=== PATIENT | female | born 1950 | race American Indian/Alaskan Native ===

== ENCOUNTER 2017-07-30 08:47 | Emergency (ER) | payer MEDICARE, OTHER ==
[~2017-07-30] VITALS: Ht 162.6 cm; Wt 80.7 kg
[~2017-07-30 08:47] MED LIST: ALBUTEROL SULF8.5 GM INH; DULERA 200 MCG/13 GM INH; FLECTOR1 EACH TOP; IBUPROFEN800 MG PO; KLOR-CON M2020 MEQ PO; LISINOPRIL10 MG PO; LOMOTIL TABLET1 EACH PO; LOPERAMIDE2 MG PO; LORATADINE10 MG PO; MAALOX ADVANCE770 ML PO; MULTI VITAMIN1 EACH PO; MYVITALIFE1 EACH PO; NAPROXEN250 MG PO; NORCO 10-325 T1 EACH PO; OMEPRAZOLE20 MG PO; ONDANSETRON ODT4 MG PO; ONDANSETRON ODT8 MG PO; PEPCID20 MG PO; PHENERGAN25 MG RC; POTASSIUM CHLO20 ME1 PO; PRILOSEC40 MG PO; PROAIR HFA8.5 GM INH; PROVENTIL HFA6.7 GM INH; SPIRIVA18 MCG INH; VITAMIN D35000 UNIT PO; ZOFRAN ODT4 MG PO; ZOFRAN ODT8 MG PO; ZOFRAN4 MG; ZOFRAN4 MG PO; ZOFRAN8 MG PO
[2017-07-30] MEDS ORDERED: LORAZEPAM1 MG PO (08:58)
[2017-07-30] MEDS ORDERED: PROMETHAZINE HC25 M1 PO (08:59)
--- NOTE | 2017-07-30 15:53 | EKG ---
[facility] [address] [facility] [place] [address] Signed Sinus rhythm with occasional premature ventricular complexes Otherwise normal ECG No previous ECGs available Confirmed by BLANCA LIZ MD ([id number]) on 07/30/2017 3:53:40 PM Electronically Signed By: BLANCA LIZ MD 07/30/17 1553 PATIENT NAME: MARGARITA MILLER REBA Electrocardiogram DATE OF : 50 PHYSICIAN: BLANCA LIZ MD REPORT #: [id number] REPORT IS CONFIDENTIAL AND NOT TO BE RELEASED WITHOUT AUTHORIZATION
== END 2017-07-30 10:30 | disposition home or self-care (01) ==
LOC: ED 08:47
DX: M94.0 Chondrocostal junction syndrome [Tietze] (principal); K21.9 Gastro-esophageal reflux disease without esophagitis; I10 Essential (primary) hypertension; Z88.5 Allergy status to narcotic agent; Z79.899 Other long term (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
CPT/HCPCS: 71010; 80053; 84484; 85025; 85379; 93005; 93010; 99284; G0480

== ENCOUNTER 2017-10-04 02:53 | Emergency (ER) | payer MEDICARE, OTHER ==
[~2017-10-04] VITALS: Ht 162.6 cm; Wt 82.1 kg
[~2017-10-04 02:53] MED LIST changes: +LORAZEPAM1 MG PO; +PROMETHAZINE HC25 M1 PO
--- OUTSIDE RECORDS SUMMARY | 2017-10-04 04:54 | XMS | Clinical Summary ---
Demographics + + + | Address | [address] | | | [place] [address] | + + + | Home Phone | | + + + | Preferred Language | Unknown | + + + | Marital Status | Single | + + + | Synagogue Affiliation | RONALDO CATHOL | + + + | Race | or | + + + | Ethnic Group | Not or | + + + Author + + + | Author | [facility] | + + + | Organization | [facility] | + + + | Address | Unknown | + + + | Phone | Unavailable | + + + Support + + +---------+ + | Name | Relationship | Address | Phone | + + +---------+ + | GERI BERNARDO | ECON | Unknown | | + + +---------+ + Care Team Providers + +------+ + | Care Vocational Director Name | Role | Phone | + +------+ + | None Per Patient, None Per | PP | Unavailable | | Pt | | | + +------+ + Allergies + + + + + + | Active Allergy | Reactions | Severity | Noted | Comments | | | | | Date | | + + + + + + | Codeine | | | 01/09/20 | | | | | | 11 | | + + + + + + Current Medications + + +-------+---------+------+------+-------+ | Prescription | Sig. | Disp. | Refills | Star | End | Statu | | | | | | t | Date | s | | | | | | Date | | | + + +-------+---------+------+------+-------+ | omeprazole | Take 20 mg by mouth | | | | | Activ | | (PRILOSEC) 20 mg | Daily. | | | | | e | | capsule | | | | | | | + + +-------+---------+------+------+-------+ | FLUTICASONE | Apply in the nose. | | | | | Activ | | PROPIONATE (FLONASE | | | | | | e | | NASL) | | | | | | | + + +-------+---------+------+------+-------+ | VIT | Take by mouth. | | | | | Activ | | 15/IRON CB/FA/DSS | | | | | | e | | ( AD ORAL) | | | | | | | + + +-------+---------+------+------+-------+ | ERGOCALCIFEROL, | Take by mouth. | | | | | Activ | | VITAMIN D2, (VITAMIN | | | | | | e | | D ORAL) | | | | | | | + + +-------+---------+------+------+-------+ | PSYLLIUM SEED | Take by mouth. | | | | | Activ | | (FIBER LAXATIVE, | | | | | | e | | PSYLLIUM, S/F ORAL) | | | | | | | + + +-------+---------+------+------+-------+ Active Problems Not on file Social History + +-------+ +--------+------+ | Tobacco Use | Types | Packs/Day | Years | Date | | | | | Used | | + +-------+ +--------+------+ | Never Assessed | | | | | + +-------+ +--------+------+ + + + | Sex Assigned at | Date Recorded | | | | + + + | Not on file | | + + + Last Filed Vital Signs + + + + | Vital Sign | Reading | Time Taken | + + + + | Blood Pressure | 129/66 | 01/08/2011 4:57 PM PDT | + + + + | Pulse | 60 | 01/08/2011 4:57 PM PDT | + + + + | Temperature | 36.8 C (98.2 F) | 01/08/2011 2:23 PM PDT | + + + + | Respiratory Rate | 18 | 01/08/2011 4:57 PM PDT | + + + + | Oxygen Saturation | 98% | 01/08/2011 4:57 PM PDT | + + + + | Inhaled Oxygen | - | - | | Concentration | | | + + + + | Weight | - | - | + + + + | Height | - | - | + + + + | Body Mass Index | - | - | + + + + Plan of Treatment + + + + + | Health Maintenance | Due Date | Last Done | Comments | + + + + + | Hep C Ab Screening | | | | | | 0 | | | + + + + + | Tetanus | | | | | | 9 | | | + + + + + | Breast Cancer | | | | | Screening | 0 | | | + + + + + | Colon Cancer | | | | | Screening | 0 | | | + + + + + | Zoster Vaccine | | | | | | 0 | | | + + + + + | Dexascan | | | | | | 5 | | | + + + + + | Pneumo 65+ (1 of 2 - | | | | | PCV13) | 5 | | | + + + + + | IMM Influenza (#1) | | | | | | 7 | | | + + + + + Results Not on filefrom Last 3 Months Insurance + +--------+ +--------+ + + | Payer | Benefi | Subscriber | Type | Phone | Address | | | t Plan | ID | | | | | | / | | | | | | | Group | | | | | + +--------+ +--------+ + + | [place] | MEDICA | [id number] | Medica | [phone] [address] [address] | | | [place] | | id | [phone] | [place] [address] | | | CARES | | | | | + +--------+ +--------+ + + + +--------+ +--------+ + + | Guarantor Name | Accoun | Relation to | Date | Phone | Billing Address | | | t Type | Patient | of | | | | | | | | | | + +--------+ +--------+ + + | MARGARITA AGOSTO | Person | Self [birth year] | Home: | [address] | | | al/Fam | | 1950 | [phone] | [place] [address] | | | steve | | | [phone] | | + +--------+ +--------+ + + Advance Directives Patient has advance directives. For more information, please contact:[email or web address] [facility] [place] [address]"
--- OUTSIDE RECORDS SUMMARY | 2017-10-04 04:54 | XMS | Clinical Summary ---
Demographics + + + | Address | [address] | | | [place] [address] | + + + | Home Phone | | + + + | Preferred Language | Unknown | + + + | Marital Status | Single | + + + | Jew Affiliation | RONALDO CATHOL | + + [...] Team Providers + +------+ + | Care Subeditor Name | Role | Phone | + [...] + | [place] | MEDICA | [id number] | Medica | [phone] | [address] [address] | | | [place] | | id | [phone] | [place] [address] | | | CARES | | | [...] | 1950 | [phone] | [place] [address] | | | steve | | | [phone] | | + +--------+ +--------+ + + Advance Directives Patient has advance directives. For more information, please contact:[employer] [place] [address]"
== END 2017-10-04 05:20 | disposition home or self-care (01) ==
LOC: ED 02:53
DX: K52.9 Noninfective gastroenteritis and colitis, unspecified (principal); K21.9 Gastro-esophageal reflux disease without esophagitis; I10 Essential (primary) hypertension; Z88.5 Allergy status to narcotic agent; Z79.899 Other long term (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
CPT/HCPCS: 80053; 81001; 83690; 85025; 96374; 96375; 99283; J2405; J7030

== ENCOUNTER 2017-11-06 09:02 | Emergency (ER) | payer MEDICARE, OTHER ==
[~2017-11-06] VITALS: Ht 162.6 cm; Wt 82.1 kg
--- OUTSIDE RECORDS SUMMARY | 2017-11-06 11:30 | XMS | Clinical Summary ---
Demographics + + + | Address | [address] | | | [place] [address] | + + + | Home Phone | | + + + | Preferred Language | Unknown | + + + | Marital Status | Single | + + + | Islam Affiliation | 1041 | + + + | Race | Unknown | + + + | Ethnic Group | Unknown | + + + Author + + + | Author | [facility] | | | and Aurelianoana | + + + | Organization | [facility] | | | and Aurelianoana | + + + | Address | Unknown | + + + | Phone | Unavailable | + + + Support + + +---------+ + | Name | Relationship | Address | Phone | + + +---------+ + | Diego Cunha | ECON | Unknown | | + + +---------+ + Care Team Providers + +------+ + | Care Business Functional Analyst Name | Role | Phone | + +------+ + | Israel Farooq DO | PP | | + +------+ + Allergies + + + + + + | Active Allergy | Reactions | Severity | Noted | Comments | | | | | Date | | + + + + + + | Codeine | Nausea Only | | 05/28/20 | | | | | | 14 | | + + + + + + Current Medications + + +-------+---------+------+------+-------+ | Prescription | Sig. | Disp. | Refills | Star | End | Statu | | | | | | t | Date | s | | | | | | Date | | | + + +-------+---------+------+------+-------+ | omeprazole | Take 40 mg by mouth | | | | | Activ | | (PRILOSEC) 40 MG | every morning | | | | | e | | capsule | (before breakfast). | | | | | | + + +-------+---------+------+------+-------+ | lisinopril | Take 10 mg by mouth | | | | | Activ | | (PRINIVIL, ZESTRIL) | Daily. | | | | | e | | 10 mg tablet | | | | | | | + + +-------+---------+------+------+-------+ | cyclobenzaprine | Take 10 mg by mouth | | | | | Activ | | (FLEXERIL) 10 mg | 3 times daily as | | | | | e | | tablet | needed. | | | | | | + + +-------+---------+------+------+-------+ | famotidine | Take 20 mg by mouth | | | | | Activ | | (PEPCID) 20 mg | 2 times daily. | | | | | e | | tablet | | | | | | | + + +-------+---------+------+------+-------+ | nitrofurantoin | Take 100 mg by mouth | | | | | Activ | | (MACROBID) 100 mg | 2 times daily. | | | | | e | | capsule | | | | | | | + + +-------+---------+------+------+-------+ | potassium citrate | Take 10 mEq by mouth | | | | | Activ | | (UROCIT-K) 10 mEq SR | 3 times daily (with | | | | | e | | tablet | meals). | | | | | | + + +-------+---------+------+------+-------+ | Multiple Vitamin | Take by mouth. | | | | | Activ | | (MULTI VITAMIN DAILY | | | | | | e | | PO) | | | | | | | + + +-------+---------+------+------+-------+ | phenazopyridine | Take 100 mg by mouth | | | | | Activ | | (PYRIDIUM) 100 mg | 3 times daily as | | | | | e | | tablet | needed. | | | | | | + + +-------+---------+------+------+-------+ | folic acid 1 mg | Take 1 mg by mouth | | | | | Activ | | tablet | Daily. | | | | | e | + + +-------+---------+------+------+-------+ | | Inhale 2 puffs into | | | | | Activ | | mometasone-formotero | the lungs Twice | | | | | e | | l (DULERA) 100-5 | Daily. | | | | | | | mcg/puff inhaler | | | | | | | + + +-------+---------+------+------+-------+ | ibuprofen (ADVIL, | Take 200 mg by mouth | | | | | Activ | | MOTRIN) 200 mg | every 6 hours as | | | | | e | | tablet | needed for Pain. | | | | | | + + +-------+---------+------+------+-------+ Active Problems + + + | Problem | Noted Date | + + + | Lumbar radiculopathy primarily right lower extremity | 06/04/2014 | + + + | DDD (degenerative disc disease), lumbar- severe at multiple | 06/04/2014 | | levels | | + + + | Foraminal stenosis of lumbar region | 06/04/2014 | + + + | Spinal stenosis of lumbar region-moderate worst at L3-L4 | 06/04/2014 | + + + | Trochanteric bursitis of both hips | 06/04/2014 | + + + | Hip arthritis-mild on the right | 06/04/2014 | + + + Family History + + +------+ + | Medical History | Relation | Name | Comments | + + +------+ + | Diabetes | Father | | | + + +------+ + | Alcohol abuse | Mother | | and father | + + +------+ + | Heart defect | Mother | | | + + +------+ + + +------+ + + | Relation | Name | Status | Comments | + +------+ + + | Brother | | Alive | | + +------+ + + | Brother | | | | + +------+ + + | Father | | | | + +------+ + + | Mother | | | | | | | (Age | | | | | 88) | | + +------+ + + | Sister | | | | | | | (Age | | | | | 65) | | + +------+ + + | Son | | | | + +------+ + + | Son | | | | + +------+ + + | Son | | Alive | | + +------+ + + Social History + +-------+ +--------+------+ | Tobacco Use | Types | Packs/Day | Years | Date | | | | | Used | | + +-------+ +--------+------+ | Never Smoker | | | | | + +-------+ +--------+------+ + + +---------+ + | Alcohol Use | Drinks/We | oz/Week | Comments | | | ek | | | + + +---------+ + | Yes | | | Socially | + + +---------+ + + + + | Sex Assigned at | Date Recorded | | | | + + + | Not on file | | + + + Last Filed Vital Signs + + + + | Vital Sign | Reading | Time Taken | + + + + | Blood Pressure | 141/82 | 11/25/2014 1509 PDT | + + + + | Pulse | 94 | 11/25/2014 1509 PDT | + + + + | Temperature | - | - | + + + + | Respiratory Rate | - | - | + + + + | Oxygen Saturation | - | - | + + + + | Inhaled Oxygen | - | - | | Concentration | | | + + + + | Weight | 83.9 kg (185 lb) | 10/22/20141151 PDT | + + + + | Height | 162.6 cm (5' 4") | 10/22/20141151 PDT | + + + + | Body Mass Index | 31.76 | 10/22/20141151 PDT | + + + + Plan of Treatment + + + + + | Health Maintenance | Due Date | Last Done | Comments | + + + + + | Hepatitis C | | | | | Screening | 0 | | | + + + + + | Vaccine: | | | | | Dtap/Tdap/Td (1 - | 9 | | | | Tdap) | | | | + + + + + | BREAST CANCER | | | | | SCREENING (MAMM Q2 | 0 | | | | YEARS 50-74) | | | | + + + + + | COLON CANCER | | | | | SCREENING | 0 | | | | (COLONOSCOPY EVERY | | | | | 10 YEARS 50-75) | | | | + + + + + | Vaccine: Zoster (#1) | | | | | | 0 | | | + + + + + | Vaccine: | | | | | Pneumococcal 65+ | 5 | | | | Low/Medium Risk (1 | | | | | of 2 - PCV13) | | | | + + + + + | Vaccine: Influenza | | | | | (Season Ended) | 8 | | | + + + + + Results Not on filefrom Last 3 Months Insurance + +--------+ +--------+ +---------+ | Payer | Benefi | Subscriber | Type | Phone | Address | | | t Plan | ID | | | | | | / | | | | | | | Group | | | | | + +--------+ +--------+ +---------+ | [employer] | FAMILY | xxxxxxxxxx | Medica | [phone] | | | MEDICARE | CARE | | re | [phone] | | | | PRMCR | | | | | | | MDCR | | | | | | | HMO | | | | | + +--------+ +--------+ +---------+ | [place]ID [place] | MEDICA | xxxxxxxx | Medica | [phone] | | | ID | | id | [phone] | | | | [place] | | | | | + +--------+ +--------+ +---------+ | [employer] | IHS | xxxxxxxxx | Indemn | | | | SERVICE | YELLOW | | ity | | | | | [place] | | | | | + +--------+ +--------+ +---------+ + +--------+ +--------+ + + | Guarantor Name | Accoun | Relation to | Date | Phone | Billing Address | | | t Type | Patient | of | | | | | | | | | | + +--------+ +--------+ + + | MARGARITA MILLER | Person | Self [birth year] | Home: | [address] | | | al/Fam | | 1950 | [phone] | [place] [address] | | | steve | | | [address] | | + +--------+ +--------+ + +
--- OUTSIDE RECORDS SUMMARY | 2017-11-06 11:30 | XMS | Clinical Summary ---
Demographics + + + | Address | [address] | | | [place] [address] | + + + | Home Phone | | + + + | Preferred Language | Unknown | + + + | Marital Status | Single | + + + | Anglican Affiliation | 1041 | + + + | Race | Unknown | + + + | Ethnic Group | Unknown | + + + Author + + + | Author | [facility] | | | and Aurelianoana | + + + | Organization | [facility] | | | and Aurelianoana [...] Team Providers + +------+ + | Care Riveter Automobile Brakes Name | Role | Phone | + [...] | FAMILY | [phone] | Medica | [phone] | | | MEDICARE | CARE | [...] | | + +--------+ +--------+ +---------+ | [facility] | IHS | xxxxxxxxx | Indemn [...] Self | [birth year] | Home: | [address] | | | al/Fam | | 1950 | [phone] | [place] [address] | | | steve | | | [address] | | + +--------+ +--------+ + +
[2017-11-06] MEDS ORDERED: ZOFRAN4 MG PO (12:06)
== END 2017-11-06 12:17 | disposition home or self-care (01) ==
LOC: ED 09:02
DX: S20.212A Contusion of left front wall of thorax, initial encounter (principal); R11.2 Nausea with vomiting, unspecified; R19.7 Diarrhea, unspecified; I10 Essential (primary) hypertension; K21.9 Gastro-esophageal reflux disease without esophagitis; Z88.5 Allergy status to narcotic agent; Z79.899 Other long term (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; W19.XXXA Unspecified fall, initial encounter
CPT/HCPCS: 71101; 80053; 81001; 83690; 85025; 96374; 96375; 99283; J2405; J7030; J7040

== ENCOUNTER 2018-08-08 23:32 | Emergency (ER) | payer MEDICARE, OTHER ==
[~2018-08-08] VITALS: Ht 162.6 cm; Wt 82.1 kg
--- OUTSIDE RECORDS SUMMARY | 2018-08-08 23:38 | XMS ---
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 EWan VISIT COUNT (12 MO.) 3 C[facility]Y Dem[facility]co TOTAL 3 NOTE: Visits indicate total known visits. 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 - Essential (primary) hypertension - Nausea with vomiting, unspecified - Diarrhea, unspecified - Contusion of left front wall of thorax, initial encounter - Gastro-esophageal reflux disease without esophagitis 10/04/2017 02:54 [facility] [place] TYPE: Emergency COMPLAINT: - ABD PAIN DIAGNOSES: - 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
== END 2018-08-09 02:25 | disposition home or self-care (01) ==
LOC: ED 23:32
DX: K59.00 Constipation, unspecified (principal); K21.9 Gastro-esophageal reflux disease without esophagitis; I10 Essential (primary) hypertension; Z88.5 Allergy status to narcotic agent; Z79.899 Other long term (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
CPT/HCPCS: 99283

== ENCOUNTER 2018-11-04 07:32 | Emergency (ER) | payer MEDICARE, OTHER ==
[~2018-11-04] VITALS: Ht 162.6 cm; Wt 82.1 kg
--- OUTSIDE RECORDS SUMMARY | ~2018-11-04 | XMS | Clinical Summary ---
Demographics + + + | Address | [address] | | | [place] [address] | + + + | Home Phone | | + + + | Preferred Language | Unknown | + + + | Marital Status | Single | + + + | Yazdanism Affiliation | 1041 | + + + | Race | Unknown | + + + | Ethnic Group | Unknown | + + + Author + + + | Author | [facility] | | | and Aurelianoana | + + + | Organization | [facility] | | | and Aurelianoana [...] Team Providers + +------+ + | Care Posting Machine Operator Name | Role | Phone [...] | | | | (Season Ended) | 9 | | | + + [...] +---------+ | [place]ICAID [place] | MEDICA | [id number] | Medica | [phone] | | | | ID | | id | [id number] | | | | [place] | | | | | + +--------+ +--------+ +---------+ | HEALTH | IHS | [id number] | Indemn | | | | SERVICE [...] Self | [birth year] | Home: | [address] | | | al/Fam | | 1950 | [phone] | [place] [address] | | | steve | | | [address] | | + +--------+ +--------+ + +
--- OUTSIDE RECORDS SUMMARY | ~2018-11-04 | XMS | Clinical Summary ---
Demographics + + + | Address | [address] | | | [place] [address] | + + + | Home Phone | | + + + | Preferred Language | Unknown | + + + | Marital Status | Single | + + + | Hinduism Affiliation | 1041 | + + + | Race | Unknown | + + + | Ethnic Group | Unknown | + + + Author + + + | Author | [facility] | | | and Aurelianoana | + + + | Organization | [facility] | | | and [...] Team Providers + +------+ + | Care Lens Assorter Name | Role | Phone | + [...] +---------+ | [place]ID [place] | MEDICA | [id number] | Medica | [phone] | | | | ID | | id | [phone] | | | | [place] | | | | | + +--------+ +--------+ +---------+ | HEALTH | IHS | [id number] | Indemn | | | | SERVICE [...] Self | [birth year] | Home: | [address] | | | al/Fam | | 1950 | [phone] | [place] [address] | | | steve | | | [address] | | + +--------+ +--------+ + +
--- OUTSIDE RECORDS SUMMARY | 2018-11-04 07:34 | XMS ---
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 Care History Medical/Surgical 08/09/2018 [facility] \T\middot;\T\nbsp; PATIENT IS A [employer] MEMBER. \T\middot;\T\nbsp; PLEASE REFER PATIENT TO [facility] FOR NON EMERGENT MEDICAL NEEDS. \T\middot;\ T\nbsp; [facility] CAN SEE PATIENTS SAME DAY FOR APTS IF PATIENT CALLS FIRST THING IN THE MORNING. Lisette VISIT COUNT (12 MO.) 3 CASSIDY Demarco TOTAL 3 NOTE: Visits indicate total known visits. 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 - Essential (primary) hypertension - Allergy status to narcotic agent status 11/06/2017 09:03 [facility] [place] TYPE: Emergency COMPLAINT: - VOMITING/DIARRHEA DIAGNOSES: - Unspecified fall, initial encounter - Allergy status to narcotic agent status - Other fpc (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 - Essential (primary) hypertension - Nausea with vomiting, unspecified - Diarrhea, unspecified - Contusion of left front wall of thorax, initial encounter - Gastro-esophageal reflux disease without esophagitis INPATIENT VISIT TRACKING (12 MO.) No inpatient visits to display in this time frame [id number]
[2018-11-04] MEDS ORDERED: ONDANSETRON ODT8 MG PO (09:13)
== END 2018-11-04 09:20 | disposition home or self-care (01) ==
LOC: ED 07:32
DX: K29.20 Alcoholic gastritis without bleeding (principal); I10 Essential (primary) hypertension; Z88.5 Allergy status to narcotic agent; Z79.899 Other long term (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
CPT/HCPCS: 80053; 83690; 85025; 96361; 96374; 96375; 99284-25; C9113; J2405; J7030

== ENCOUNTER 2019-04-11 20:57 | Emergency (ER) | payer MEDICARE, OTHER ==
[~2019-04-11] VITALS: Ht 162.6 cm; Wt 82.1 kg
--- OUTSIDE RECORDS SUMMARY | 2019-04-11 21:00 | XMS ---
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 Care History Medical/Surgical 08/09/2018 [facility] \T\middot;\T\nbsp; PATIENT IS A [employer] MEMBER. \T\middot;\T\nbsp; PLEASE REFER PATIENT TO [facility] FOR NON EMERGENT MEDICAL NEEDS. \T\middot;\ T\nbsp; [facility] CAN SEE PATIENTS SAME DAY FOR APTS IF PATIENT CALLS FIRST THING IN THE MORNING. Lisette VISIT COUNT (12 MO.) 4 CASSIDY Demarco TOTAL 4 NOTE: Visits indicate total known visits. 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
== END 2019-04-11 22:30 | disposition home or self-care (01) ==
LOC: ED 20:57
DX: K29.20 Alcoholic gastritis without bleeding (principal); K85.20 Alcohol induced acute pancreatitis without necrosis or infection; I10 Essential (primary) hypertension; J45.909 Unspecified asthma, uncomplicated; K21.9 Gastro-esophageal reflux disease without esophagitis; Z88.5 Allergy status to narcotic agent; Z79.899 Other long term (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
CPT/HCPCS: 51701; 80053; 81001; 83690; 83735; 85025; 99284-25; G0480; J2405; J7030

== ENCOUNTER 2019-04-12 00:23 | Emergency (ER) | payer MEDICARE, OTHER ==
[~2019-04-12] VITALS: Ht 162.6 cm; Wt 82.1 kg
--- OUTSIDE RECORDS SUMMARY | 2019-04-12 00:26 | XMS ---
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 Care History Medical/Surgical 08/09/2018 [facility] \T\middot;\T\nbsp; PATIENT IS A [employer] MEMBER. \T\middot;\T\nbsp; PLEASE REFER PATIENT TO [facility] FOR NON EMERGENT MEDICAL NEEDS. \T\middot;\ T\nbsp; [facility] CAN SEE PATIENTS SAME DAY FOR APTS IF PATIENT CALLS FIRST THING IN THE MORNING. E.D. VISIT COUNT (12 MO.) 5 CASSIDY Demarco TOTAL 5 NOTE: Visits indicate total known visits. ED/UCC VISIT TRACKING (12 MO.) 04/12/2019 00:24 [facility] TYPE: Emergency COMPLAINT: - CHEST PAIN, VOMITING 04/11/2019 20:58 [facility] TYPE: Emergency COMPLAINT: - N/V/D 03/10/2019 18:25 [facility] TYPE: Emergency COMPLAINT: - LOWER BACK PAIN DIAGNOSES: - Other long winder tender (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 - Allergy status to narcotic agent status - Essential (primary) hypertension - Gastro-esophageal reflux disease without esophagitis - Low back pain 11/04/2018 07:33 [facility] TYPE: Emergency COMPLAINT: - ABD PAIN/VOMITING DIAGNOSES: - Nausea with vomiting, unspecified - Other long winder tender (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 - Alcoholic gastritis without bleeding - Essential (primary) hypertension - Allergy status to narcotic agent status 08/08/2018 23:34 [facility] TYPE: Emergency COMPLAINT: - CONSTIPATION DIAGNOSES: - Gastro-esophageal reflux disease without esophagitis - Constipation, unspecified - Other mcc (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 - Essential (primary) hypertension - Allergy status to narcotic agent status INPATIENT VISIT TRACKING (12 MO.) No inpatient visits to display in this time frame [id number]
--- NOTE | 2019-04-12 13:08 | EKG ---
[facility] [address] [facility] [place] [address] Signed Normal sinus rhythm Low voltage QRS Borderline ECG When compared with ECG of 30-JUL-2017 08:51, premature ventricular complexes are no longer present Confirmed by BLANCA LIZ MD ([id number]) on 04/12/2019 1:08:32 PM Electronically Signed By: BLANCA LIZ MD 04/12/19 1308 PATIENT NAME: MARGARITA MILLER REBA Electrocardiogram DATE OF : 50 PHYSICIAN: BLANCA LIZ MD REPORT #: [id number] REPORT IS CONFIDENTIAL AND NOT TO BE RELEASED WITHOUT AUTHORIZATION
== END 2019-04-12 02:52 | disposition home or self-care (01) ==
LOC: ED 00:23
DX: K52.9 Noninfective gastroenteritis and colitis, unspecified (principal); I10 Essential (primary) hypertension; Z88.5 Allergy status to narcotic agent; Z79.899 Other long term (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
CPT/HCPCS: 74177; 93005; 93010; 96361; 99284-25; C9113; J2550; J7030; Q9967

== ENCOUNTER 2019-08-05 11:25 | Emergency (ER) | payer MEDICARE, OTHER ==
[~2019-08-05] VITALS: Ht 162.6 cm; Wt 82.1 kg
--- OUTSIDE RECORDS SUMMARY | ~2019-08-05 | XMS | Encounter Summary ---
Demographics + + + | Address | [address] | | | [place] [address] | + + + | Home Phone | | + + + | Preferred Language | Unknown | + + + | Marital Status | Single | + + + | Latter Day Affiliation | 1041 | + + + | Race | Unknown | + + + | Ethnic Group | Unknown | + + + Author + + + | Author | [facility] | | | and Aurelianoana | + + + | Organization | [facility] | | | and Aurelianoana | [...] Team Providers + +------+ + | Care Furnace Installer Helper Name | Role | Phone | + +------+ + | Shirley Alvarez | PCP | | + +------+ + Encounter Details +--------+ + + + + | Date | Type | Department | Care Team | Description | +--------+ + + + + | 06/29/ | Orders Only | [facility] | Augustin Medina MD | Back pain; | | 2011 | | NEUROSURGERY [address] | [address] | Hip pain, left | | | | [address] | [place] [address] | | | | | [place] | [phone] | | | | | [address] | | | | | | [phone] | | | +--------+ + + + [...] as of this encounter Plan of Treatment + +---------+--------+ + + | Name | Type | Priori | Associated Diagnoses | Order Schedule | | | | ty | | | + +---------+--------+ + + | XR Lumbar Spine 4 + | Imaging | Routin | Back pain Hip | Expected: | | Vw | | e | pain, left | 06/29/2012, Expires: | | | | | | 06/29/2013 | + +---------+--------+ + + documented as of this encounter Visit Diagnoses + + | Diagnosis | + + | Back pain Backache, unspecified | + + | Hip pain, left Pain in joint, pelvic region and thigh | + + documented in this encounter"
--- OUTSIDE RECORDS SUMMARY | ~2019-08-05 | XMS | Encounter Summary ---
Demographics + + + | Address | [address] | | | [place] [address] | + + + | Home Phone | | + + + | Preferred Language | Unknown | + + + | Marital Status | Single | + + + | Restorationism Affiliation | 1041 | + + + | Race | Unknown | + + + | Ethnic Group | Unknown | + + + Author + + + | Author | [facility] | | | and Aurelianoana | + + + | Organization | [facility] | | | and [...] Team Providers + +------+ + | Care Type Inspector Name | Role | Phone | + +------+ + | Israel Farooq DO | PCP | | + +------+ + Reason for Visit Service/Procedure (Routine) +--------+--------+ + + + + | Status | Reason | Specialty | Diagnoses / | Referred By | Referred To | | | | | Procedures | Contact | Contact | +--------+--------+ + + + + | Closed | | Radiology | Diagnoses | | [facility] | | | | | Thoracic or | [place], | [address] | | | | | lumbosacral | Randy Villar MD | [place], | | | | | neuritis or | [address] | [place] | | | | | | ST [place] | [address] | | | | | radiculitis, | [place], [place] | Phone: | | | | | unspecified | [address] | [phone] | | | | | | Phone: | Fax: | | | | | Trochanteric | [phone] | [phone] | | | | | bursitis of | Fax: | | | | | | right hip | [phone] | | | | | | Procedures | | | | | | | [place] | | | | | | | ARTHROCENTES | | | | | | | IS | | | | | | | ASPIR&/INJ | | | | | | | MAJOR | | | | | | | JT/BURSA W/O | | | | | | | US [place] | | | | | | | INJECT | | | | | | | ANES/STEROID | | | | | | | FORAMEN | | | | | | | LUMBAR/SACRA | | | | | | | L W IMG | | | | | | | GUIDE ,1 | | | | | | | LEVEL FL | | | | | | | TRIAMCINOLON | | | | | | | E ACET INJ | | | | | | | NOS, 10 MG | | | | | | | Right S1 | | | | | | | TFESI and Rt | | | | | | | Troch | | | | | | | Bursa-APPT | | | | | | | 4/7 | | | +--------+--------+ + + + + Encounter Details +--------+ + + + + | Date | Type | Department | Care Team | Description | +--------+ + + + + | 11/25/ | Hospital | [facility] | [place] ajosé antonioleightonRandy | Lumbar radiculopathy | | 2015 | Encounter | MED CTR XRAY [address] | [address], [address] | (Primary Dx); Right | | | | [address] [place] | [place], [place] | lumbar | | | | [place] [address] | [address] | radiculopathy; | | | | [phone] | | Trochanteric | | | | | Hand Violin Maker, [place] | bursitis of both | | | | | | hips | +--------+ + + + + Social [...] + + documented as of this encounter Last Filed Vital Signs + +---------+ + + | Vital Sign | Reading | Time Taken | Comments | + +---------+ + + | Blood Pressure | 141/82 | 11/25/2014 3:09 PM | | | | | PDT | | + +---------+ + + | Pulse | 94 | 11/25/2014 3:09 PM | | | | | PDT | | + +---------+ + + | Temperature | - | - | | + +---------+ + + | Respiratory Rate | - | - | | + +---------+ + + | Oxygen Saturation | - | - | | + +---------+ + + | Inhaled Oxygen | - | - | | | Concentration | | | | + +---------+ + + | Weight | - | - | | + +---------+ + + | Height | - | - | | + +---------+ + + | Body Mass Index | - | - | | + +---------+ + + documented in this encounter Medications at Time of Discharge + + + +---------+--------+ + | Medication | Sig | Dispensed | Refills | Start | End Date | | | | | | Date | | + + + +---------+--------+ + | cyclobenzaprine | Take 10 mg by mouth | | 0 | | | | (FLEXERIL) 10 mg | 3 times daily as | | | | | | tablet | needed. | | | | | + + + +---------+--------+ + | famotidine | Take 20 mg by mouth | | 0 | | | | (PEPCID) 20 mg | 2 times daily. | | | | | | tablet | | | | | | + + + +---------+--------+ + | folic acid 1 mg | Take 1 mg by mouth | | 0 | | | | tablet | Daily. | | | | | + + + +---------+--------+ + | ibuprofen (ADVIL, | Take 200 mg by mouth | | 0 | | | | MOTRIN) 200 mg | every 6 hours as | | | | | | tablet | needed for Pain. | | | | | + + + +---------+--------+ + | lisinopril | Take 10 mg by mouth | | 0 | | | | (PRINIVIL, ZESTRIL) | Daily. | | | | | | 10 mg tablet | | | | | | + + + +---------+--------+ + | | Inhale 2 puffs into | | 0 | | | | mometasone-formotero | the lungs Twice | | | | | | l (DULERA) 100-5 | Daily. | | | | | | mcg/puff inhaler | | | | | | + + + +---------+--------+ + | Multiple Vitamin | Take by mouth. | | 0 | | | | (MULTI VITAMIN DAILY | | | | | | | PO) | | | | | | + + + +---------+--------+ + | nitrofurantoin | Take 100 mg by mouth | | 0 | | | | (MACROBID) 100 mg | 2 times daily. | | | | | | capsule | | | | | | + + + +---------+--------+ + | omeprazole | Take 40 mg by mouth | | 0 | | | | (PRILOSEC) 40 MG | every morning | | | | | | capsule | (before breakfast). | | | | | + + + +---------+--------+ + | phenazopyridine | Take 100 mg by mouth | | 0 | | | | (PYRIDIUM) 100 mg | 3 times daily as | | | | | | tablet | needed. | | | | | + + + +---------+--------+ + | potassium citrate | Take 10 mEq by mouth | | 0 | | | | (UROCIT-K) 10 mEq SR | 3 times daily (with | | | | | | tablet | meals). | | | | | + + + +---------+--------+ + documented as of this encounter Plan of Treatment Not on filedocumented as of this encounter Procedures + +--------+ + + + | Procedure Name | Priori | Date/Time | Associated Diagnosis | Comments | | | ty | | | | + +--------+ + + + | FL ASPIRATION | Routin | 11/25/2014 | Trochanteric | Results for this | | INJECTION | e | 2:52 PM | bursitis of both | procedure are in the | | INTERMEDIATE JOINT | | PDT | hips | results section. | | RIGHT | | | | | + +--------+ + + + | FL EPIDURAL STEROID | Routin | 11/25/2014 | Right lumbar | Results for this | | INJECTION LUMBAR | e | 2:52 PM | radiculopathy | procedure are in the | | TRANSFORAMINAL | | PDT | | results section. | + +--------+ + + + documented in this encounter Results FL Asp Inj Intermediate Joint Right (11/25/2014 2:52 PM PDT) + + | Specimen | + + | | + + + + + | Narrative | Performed At | + + + | 11/25/2014 Right S1 Transforaminal Epidural Steroid Injection and | [facility] | | Right Trochanteric Bursa Injection Diagnosis: Lumbosacral | [facility] | | radiculopathy and Trochanteric Bursitis ICD-9 Codes 724.4, 726.5 | [facility] | | Leyla Agosto presents to the fluoroscopy suite for a | - IMAGING | | fluoroscopically-guided right S1 transforaminal epidural steroid | | | injection as part of conservative management for chronic pain with | | | lumbosacral radiculopathy and degenerative disk disease. After | | | informed consent was obtained, the patient lay in the prone position | | | on the fluoroscopy table. The area was identified under | | | fluoroscopic guidance. The area was prepped and draped in sterile | | | fashion. A 25-gauge, 1.5-inch needle was inserted into this region | | | and approximately 3 mL of buffered 1% lidocaine was infused. | | | Then, a 22-gauge spinal needle was inserted into the superolateral | | | region of the right S1 foramen and advanced into the epidural space | | | under fluoroscopic guidance. Confirmation into the epidural space | | | was obtained with infusion of approximately 1 mL of Omnipaque | | | contrast which showed epidural flow. Then, a combination of 1.5 | | | mL of 1% lidocaine and 1.5 mL of 6 mg/mL Celestone was infused. | | | A right trochanteric bursa injection was also performed with | | | fluoroscopic guidance. The area for the injection was located by | | | palpation and fluoroscopic guidance then marked over the lateral | | | hip. The area was then sterilized with chlorhexidine scrub before | | | inserting a 1-1/2 inch 27-gauge needle into the region to administer | | | approximately 2 mL of buffered 1% lidocaine for local anesthesia. | | | Then a 22 gauge spinal needle was advanced down to the greater | | | trochanter under fluoroscopic guidance. Next, a small amount of | | | contrast was then infused to insure that there was no vascular | | | uptake. A total volume of 5 mL including 1 mL of triamcinolone ( 40 | | | milligrams per mL) and 4 mL of 1% lidocaine was then infused. The | | | needle was removed and the area was cleaned and bandaged. The | | | patient tolerated the procedures well without complications. Pre- | | | and post-procedure blood pressures were stable. The patient was | | | given verbal as well as written follow-up instructions. Prior | | | to the start of the procedure, the following were performed and/or | | | verified, including correct patient identity, correct site/side marked | | | and visible, agreement on the procedure to be done, correct patient | | | positioning and an accurate procedure consent form. Any safety | | | precautions based on clinical history and/or medication use have been | | | addressed. I personally performed the procedure above. | | | Estimated blood loss: Minimal Complications: None Findings: As | | | expected Anesthesia: Local 1% Lidocaine | | + + + + + + + + | Performing | Address | City/State[facility] | Phone Number | | Organization | | | | + + + + + | [facility] | [address] | [place], [place] | [phone] | | [facility] | | [address] | | | - IMAGING | | | | + + + + + FL JOSE ENRIQUE Lumbar Transforaminal (11/25/2014 2:52 PM PDT) + + | Specimen | + + | | + + + + + | Narrative | Performed At | + + + | 11/25/2014 Right S1 Transforaminal Epidural Steroid Injection and | [facility] | | Right Trochanteric Bursa Injection Diagnosis: Lumbosacral | [facility] | | radiculopathy and Trochanteric Bursitis ICD-9 Codes 724.4, 726.5 | MEDICAL [facility]ENTER | | Leyla Agosto presents to the fluoroscopy suite for a | - IMAGING | | fluoroscopically-guided right S1 transforaminal epidural steroid | | | injection as part of conservative management for chronic pain with | | | lumbosacral radiculopathy and degenerative disk disease. After | | | informed consent was obtained, the patient lay in the prone position | | | on the fluoroscopy table. The area was identified under | | | fluoroscopic guidance. The area was prepped and draped in sterile | | | fashion. A 25-gauge, 1.5-inch needle was inserted into this region | | | and approximately 3 mL of buffered 1% lidocaine was infused. | | | Then, a 22-gauge spinal needle was inserted into the superolateral | | | region of the right S1 foramen and advanced into the epidural space | | | under fluoroscopic guidance. Confirmation into the epidural space | | | was obtained with infusion of approximately 1 mL of Omnipaque | | | contrast which showed epidural flow. Then, a combination of 1.5 | | | mL of 1% lidocaine and 1.5 mL of 6 mg/mL Celestone was infused. | | | A right trochanteric bursa injection was also performed with | | | fluoroscopic guidance. The area for the injection was located by | | | palpation and fluoroscopic guidance then marked over the lateral | | | hip. The area was then sterilized with chlorhexidine scrub before | | | inserting a 1-1/2 inch 27-gauge needle into the region to administer | | | approximately 2 mL of buffered 1% lidocaine for local anesthesia. | | | Then a 22 gauge spinal needle was advanced down to the greater | | | trochanter under fluoroscopic guidance. Next, a small amount of | | | contrast was then infused to insure that there was no vascular | | | uptake. A total volume of 5 mL including 1 mL of triamcinolone ( 40 | | | milligrams per mL) and 4 mL of 1% lidocaine was then infused. The | | | needle was removed and the area was cleaned and bandaged. The | | | patient tolerated the procedures well without complications. Pre- | | | and post-procedure blood pressures were stable. The patient was | | | given verbal as well as written follow-up instructions. Prior | | | to the start of the procedure, the following were performed and/or | | | verified, including correct patient identity, correct site/side marked | | | and visible, agreement on the procedure to be done, correct patient | | | positioning and an accurate procedure consent form. Any safety | | | precautions based on clinical history and/or medication use have been | | | addressed. I personally performed the procedure above. | | | Estimated blood loss: Minimal Complications: None Findings: As | | | expected Anesthesia: Local 1% Lidocaine | | + + + + + + + + | Performing | Address | City/State/Zipcode | Phone Number | | Organization | | | | + + + + + | [facility] | [address] | [place], [place] | [phone] | | [facility] | | [address] | | | - IMAGING | | | | + + + + + documented in this encounter Visit Diagnoses + + | Diagnosis | + + | Lumbar radiculopathy - Primary Thoracic or lumbosacral neuritis or radiculitis, | | unspecified | + + | Right lumbar radiculopathy Thoracic or lumbosacral neuritis or radiculitis, | | unspecified | + + | Trochanteric bursitis of both hips Enthesopathy of hip region | + + documented in this encounter Administered Medications + +--------+ +------+------+------+ | Medication Order | MAR | Action | Dose | Rate | Site | | | Action | Date | | | | + +--------+ +------+------+------+ | betamethasone (CELESTONE | Given | 11/26/19 | 6 mg | | | | SOLUSPAN) injection 6 mg 6 mg, | | 15 3:05 | | | | | Other, ONCE, Tue11/25/14 at 1515, | | PM PDT | | | | | For 1 dose, Shake well. Not for | | | | | | | IV use., | | | | | | + +--------+ +------+------+------+ +---+---+ | | | +---+---+ + +-------+ +-------+---+---+ | iohexol (OMNIPAQUE 300) 300 | Given | 11/26/19 | 4 mLs | | | | mg/mL injection 4 mL 4 mL, | | 15 3:03 | | | | | INTRATHECAL, ONCE, Tue11/25/14 at | | PM PDT | | | | | 1515, For 1 dose | | | | | | + +-------+ +-------+---+---+ +---+---+ | | | +---+---+ + +-------+ +-------+---+---+ | lidocaine (PF) 1% injection 2 | Given | 11/26/19 | 2 mLs | | | | mL 2 mL, EPIDURAL, ONCE, Mon | | 15 3:05 | | | | | 11/25/14 at 1515, For 1 dose | | PM PDT | | | | + +-------+ +-------+---+---+ +---+---+ | | | +---+---+ + +-------+ +-------+---+ + | lidocaine 1% injection 5 mL 5 | Given | 11/26/19 | 5 mLs | | Other | | mL, Intradermal, ONCE, Mon | | 15 3:00 | | | (Comment | | 11/25/14 at 1515, For 1 dose | | PM PDT | | | ) | + +-------+ +-------+---+ + +---+---+ | | | +---+---+ + +-------+ +-------+---+---+ | sodium bicarbonate (NEUT) 4% | Given | 11/26/19 | 4 mLs | | | | injection 4 mL 4 mL, | | 15 3:00 | | | | | Infiltration, ONCE, Tue11/25/14 | | PM PDT | | | | | at 1515, For 1 dose, Use for | | | | | | | addition to other parenteral | | | | | | | solutions., | | | | | | + +-------+ +-------+---+---+ +---+---+ | | | +---+---+ + +-------+ +-------+---+---+ | triamcinolone acetonide | Given | 11/26/19 | 40 mg | | | | (KENALOG-40) 40 mg/mL injection | | 15 3:18 | | | | | 40 mg 40 mg, Intra-articular, | | PM PDT | | | | | ONCE, Tue11/25/14 at 1515, For 1 | | | | | | | dose, Shake well. Not for IV | | | | | | | use., | | | | | | + +-------+ +-------+---+---+ +---+---+ | | | +---+---+ documented in this encounter"
--- OUTSIDE RECORDS SUMMARY | ~2019-08-05 | XMS | Encounter Summary ---
Demographics + + + | Address | [address] | | | [place] [address] | + + + | Home Phone | | + + + | Preferred Language | Unknown | + + + | Marital Status | Single | + + + | Orthodox Affiliation | 1041 | + + + | Race | Unknown | + + + | Ethnic Group | Unknown | + + + Author + + + | Author | [facility] | | | and Aurelianoana | + + + | Organization | [facility] | | | and [...] Team Providers + +------+ + | Care Child Care Attendant School Name | Role | Phone | + +------+ + PCP | Unavailable | + +------+ + Encounter Details +--------+ + + + + | Date | Type | Department | Care Team | Description | +--------+ + + + + | 05/10/ | Hospital | [facility] | | | | 2001 | Encounter | MED CTR GENERIC OP | | | | | | CONV DEPT [address] | | | | | | [place], | | | | | | [place] [address] | | | | | | [phone] | | | +--------+ + + + [...]
--- OUTSIDE RECORDS SUMMARY | ~2019-08-05 | XMS | Encounter Summary ---
Demographics + + + | Address | [address] | | | [place] [address] | + + + | Home Phone | | + + + | Preferred Language | Unknown | + + + | Marital Status | Single | + + + | Synagogue Affiliation | 1041 | + + + | Race | Unknown | + + + | Ethnic Group | Unknown | + + + Author + + + | Author | [facility] | | | and Aurelianoana | + + + | Organization | [facility] | | | and Aurelianoana | [...] Team Providers + +------+ + | Care Nurse Name | Role | Phone | + [...] Thoracic or | [place], | [address] | | | | | lumbosacral | Randy Villar MD | [place], | | | | | neuritis or | [address] | [place] | | | | | | [place] | [address] | | | | | radiculitis, | [place], [place] | Phone: | | | | | unspecified | [address] | [phone] | | | | | | Phone: | Fax: | | | | | Trochanteric | [phone] | [phone] | | | | | bursitis of | Fax: | | | | | | right hip | [phone] | | | | | | Procedures | | | | | | | [place] | | | | | | | ARTHROCENTES | | | | | | | IS | | | | | | | ASPIR&/INJ | | | | | | | MAJOR | | | | | | | JT/BURSA W/O | | | | | | | US [place] | | | | | | | INJECT | | | | | | | ANES/STEROID | | | | | | | FORAMEN | | | | | | | LUMBAR/SACRA | | | | | | | L W IMG | | | | | | | GUIDE ,1 | | | | | | | LEVEL [place] | | | | | | | [...] + + | 11/25/ | Hospital | [facility] | Hongluis ajosé antonioleightonRandy | Lumbar radiculopathy | | 2015 | Encounter | MED CTR XRAY [address] | [address] | (Primary Dx); Right | | | | [address] [place] | [place], [place] | lumbar | | | | [place] [address] | [address] | radiculopathy; | | | | [phone] | | Trochanteric | | | | | Oil Tester, [place] | bursitis of both | | [...] + + | Performing | Address | City/State/R[place] | Phone Number | | Organization | | | | + + + + + | [facility] | [address] | [place], [place] | [phone] | | [facility] | | [address] | | | - IMAGING | | [...] ST[facility] | [address] | [place], [place] | [phone] | | [facility] | | [address] | | | - IMAGING | | [...]
--- OUTSIDE RECORDS SUMMARY | ~2019-08-05 | XMS | Encounter Summary ---
Demographics + + + | Address | [address] | | | [place] [address] | + + + | Home Phone | | + + + | Preferred Language | Unknown | + + + | Marital Status | Single | + + + | Pentecostal Affiliation | 1041 | + + + | Race | Unknown | + + + | Ethnic Group | Unknown | + + + Author + + + | Author | [facility] | | | and Aurelianoana | + + + | Organization | [facility] | | | and Aurelianoana | [...] Team Providers + +------+ + | Care Gas Operator Name | Role | Phone | + [...] [address] | | | | | [place], | [address] [place] | | | | | [place] [address] | [address] | | | | | [phone] | | | +--------+ + + + [...]
--- OUTSIDE RECORDS SUMMARY | ~2019-08-05 | XMS | Encounter Summary ---
Demographics + + + | Address | [address] | | | [place] [address] | + + + | Home Phone | | + + + | Preferred Language | Unknown | + + + | Marital Status | Single | + + + | Pentecostalism Affiliation | 1041 | + + + | Race | Unknown | + + + | Ethnic Group | Unknown | + + + Author + + + | Author | [facility] | | | and Aurelianoana | + + + | Organization | [facility] | | | and Aurelianoana [...] Team Providers + +------+ + | Care Die Engraving Supervisor Name | Role | Phone | + +------+ + PCP | Unavailable | + +------+ + Encounter Details +--------+ + + + + | Date | Type | Department | Care Team | Description | +--------+ + + + + | 05/21/ | Hospital | [facility] | | | | 2001 | Encounter | MED CTR XRAY [address] | | | | | | [place] | | | | | | [place] [address] | | | | | | [phone] | | | +--------+ + + + [...]
--- OUTSIDE RECORDS SUMMARY | ~2019-08-05 | XMS | Encounter Summary ---
Demographics + + + | Address | [address] | | | [place] [address] | + + + | Home Phone | | + + + | Preferred Language | Unknown | + + + | Marital Status | Single | + + + | Quaker Affiliation | 1041 | + + + | Race | Unknown | + + + | Ethnic Group | Unknown | + + + Author + + + | Author | [facility] | | | and Aurelianoana | + + + | Organization | [facility] | | | and [...] Team Providers + +------+ + | Care Iron And Steel Work Supervisor Name | Role | Phone | [...] | | [address] | [place] [address] | | | | | [place] | [phone] | | | | | [address] | | | | | | [phone] | | | +--------+ + + + [...]
--- OUTSIDE RECORDS SUMMARY | ~2019-08-05 | XMS | Encounter Summary ---
Demographics + + + | Address | [address] | | | [place] [address] | + + + | Home Phone | | + + + | Preferred Language | Unknown | + + + | Marital Status | Single | + + + | Hinduism Affiliation | 1041 | + + + | Race | Unknown | + + + | Ethnic Group | Unknown | + + + Author + + + | Author | [facility] | | | and Aurelianoana | + + + | Organization | [facility] | | | and [...] Team Providers + +------+ + | Care Exhibitions Curator Name | Role | Phone | + +------+ + PCP | Unavailable | + +------+ + Encounter Details +--------+ + + + + | Date | Type | Department | Care Team | Description | +--------+ + + + + | 05/21/ | Hospital | [facility] | | | | 2001 | Encounter | MED CTR XRAY [address] | | | | | | [place] | | | | | | [place] [address] | | | | | | [phone] | | | +--------+ + + + [...]
--- OUTSIDE RECORDS SUMMARY | ~2019-08-05 | XMS | Encounter Summary ---
Demographics + + + | Address | [address] | | | [place] [address] | + + + | Home Phone | | + + + | Preferred Language | Unknown | + + + | Marital Status | Single | + + + | Confucianist Affiliation | 1041 | + + + | Race | Unknown | + + + | Ethnic Group | Unknown | + + + Author + + + | Author | [facility] | | | and Aurelianoana | + + + | Organization | [facility] | | | and Aurelianoana [...] Team Providers + +------+ + | Care Vacuum Frame Operator Name | Role | Phone | [...] | | | | | disease), | [address] | [address] | | | | | lumbar | Phone: | Phone: | | | | | [place] | [phone] | [phone] | | | | | stenosis of | Fax: | Fax: | | | | | lumbar | [phone] | [phone] | | | | | region | [...] and | Spinal | Dereje Joe, | Ranyd Villar MD | | | | Rehabilitatio | stenosis, | PA-C [address] | [address] | | | | n | other region | [address] | [address] | | | | | Sciatica | WAY | [place] | | | | | | Mya, | [address] Phone: | | | | | | [place] [address] | [phone] | | | | | | Phone: | Fax: | | | | | | [phone] | [phone] | | | | | | Fax: | | | | | | | [phone] | | +--------+--------+ + + + + Encounter Details +--------+---------+ + + + | Date | Type | Department | Care Team | Description | +--------+---------+ + + + | 06/04/ | Office | [facility] | Randy Kirk | Lumbar radiculopathy | | 2013 | Visit | PHYSIATRY [address] | T[address] | primarily right | | | | [place], | [place] | lower extremity | | | | [place] [address] | [address] | (Primary Dx); DDD | | | | [phone] | | (degenerative disc | | | [...] [facility]. [facility] PA-C for complaints of [...] Surgical History Procedure Date section, classic 1972,1976,1978 [facility] Cholecystectomy 2004 CURRENT MEDICATIONS: Current Outpatient Prescriptions [...] has no apparent deficits with short or fci memory. She has appropriate fund of knowledge [...]
--- OUTSIDE RECORDS SUMMARY | ~2019-08-05 | XMS | Clinical Summary ---
Demographics + + + | Address | [address] | | | [place] [address] | + + + | Home Phone | | + + + | Preferred Language | Unknown | + + + | Marital Status | Single | + + + | Catholic Affiliation | 1041 | + + + | Race | Unknown | + + + | Ethnic Group | Unknown | + + + Author + + + | Author | [facility] | | | and Aurelianoana | + + + | Organization | [facility] | | | and Aurelianoana [...] Team Providers + +------+ + | Care Court Bailiff Name | Role | Phone | + [...] Vaccine: Influenza | | | | | (#1) | 9 | | | + + [...] +---------+--------+ | [place] | MEDICA | [id number] | 06/28/ | [phone] | | Medica | | | ID | | 2011-P | 2 | | id | | | [place] | | resent | | | | + +--------+ +--------+ +---------+--------+ | [facility] | IHS | [id number] | | | | [place] | | SERVICE | YELLOW | | [...] | Self | [birth year] | [address] | | | al/Fam | | 1950 | [phone] | [place] [address] | | | [place]ve | | | 9 (Home) | | + +--------+ +--------+ + + Advance Directives + + + + + | Type | Date Recorded | Patient | Explanation | | | | Emergency Service Worker | | + + + + + | Power of | | | | | Idea Man | | | | + + + + + | Advance | | | | | Directive | | | | + + + + +
--- OUTSIDE RECORDS SUMMARY | ~2019-08-05 | XMS | Encounter Summary ---
Demographics + + + | Address | [address] | | | [place] [address] | + + + | Home Phone | | + + + | Preferred Language | Unknown | + + + | Marital Status | Single | + + + | Yazdanism Affiliation | 1041 | + + + | Race | Unknown | + + + | Ethnic Group | Unknown | + + + Author + + + | Author | [facility] | | | and Aurelianoana | + + + | Organization | [facility] | | | and Aurelianoana [...] Providers + +------+ + | Care Gas Regulator Repairer Name | Role | Phone | + +------+ + PCP | Unavailable | + +------+ + Encounter Details +--------+ + + + + | Date | Type | Department | Care Team | Description | +--------+ + + + + | 05/10/ | Hospital | [facility] | | | | 2001 | Encounter | MED CTR GENERIC OP | | | | | | CONV DEPT [address] | | | | | | [place], | | | | | | [place] [address] | | | | | | [phone] | | | +--------+ + + + [...]
--- OUTSIDE RECORDS SUMMARY | ~2019-08-05 | XMS | Clinical Summary ---
Demographics + + + | Address | [address] | | | [place] [address] | + + + | Home Phone | | + + + | Preferred Language | Unknown | + + + | Marital Status | Single | + + + | Yarsanism Affiliation | 1041 | + + + | Race | Unknown | + + + | Ethnic Group | Unknown | + + + Author + + + | Author | [facility] | | | and Aurelianoana | + + + | Organization | [facility] | | | and Aurelianoana | [...] Team Providers + +------+ + | Care Party Host/Hostess Name | Role | Phone | + [...] +---------+--------+ | [place] | MEDICA | [id number] | 06/28/ | [phone] | | Medica | | | ID | | 2011-P | 2 | | id | | | [place] | | resent | | | | + +--------+ +--------+ +---------+--------+ | [facility] | IHS | [id number] | | | | [place] | | [...] | Self | [birth year] | | [address] | | | al/Fam | | 1950 | [phone] | [place] [address] | | | steve | | | 9 (Home) | | + +--------+ +--------+ + + Advance Directives + + + + + | Type | Date Recorded | Patient | Explanation | | | | Director Nurses' Registry | | + + + + + | Power of | | | | | Adjunct Spanish Instructor | | | | + + + + + | Advance | | | | | Directive | | | | + + + + +
--- OUTSIDE RECORDS SUMMARY | ~2019-08-05 | XMS | Encounter Summary ---
Demographics + + + | Address | [address] | | | [place] [address] | + + + | Home Phone | | + + + | Preferred Language | Unknown | + + + | Marital Status | Single | + + + | Orthodox Affiliation | 1041 | + + + | Race | Unknown | + + + | Ethnic Group | Unknown | + + + Author + + + | Author | [facility] | | | and Aurelianoana | + + + | Organization | [facility] | | [...] Team Providers + +------+ + | Care Back Pad Inspector Name | Role | Phone | [...] | | | | | disease), | [address] | [address] | | | | | lumbar | Phone: | Phone: | | | | | [place]am[place] | [phone] | [phone] | | | | | stenosis of | Fax: | Fax: | | | | | lumbar | [phone] | [phone] | | | | | region | [...] | | Rehabilitatio | stenosis, | PA-C [address] | [address] | | | | n | other region | [address] | [address] | | | | | Sciatica | WAY | [place] | | | | | | Mya, | [address] Phone: | | | | | | [place] [address] | [phone] | | | | | | Phone: | Fax: | | | | | | [phone] | [phone] | | | | | | Fax: | | | | | | | [phone] | | +--------+--------+ + + + + Encounter Details +--------+---------+ + + + | Date | Type | Department | Care Team | Description | +--------+---------+ + + + | 06/04/ | Office | [facility] | Randy Kirk | Lumbar radiculopathy | | 2013 | Visit | PHYSIATRY [address] | T[address] | primarily right | | | | [place], | [place] | lower extremity | | | | [place] [address] | [address] | (Primary Dx); DDD | | | | [phone] | | (degenerative disc | | | [...] y.o. female being seen today at the [facility] Brandyn Rodriguez PA-C for [...] Surgical History Procedure Date section, classic 1972,1976,1978 [facility] Cholecystectomy 2004 CURRENT MEDICATIONS: Current Outpatient Prescriptions [...] has no apparent deficits with short or snf memory. She has appropriate fund of knowledge [...]
--- OUTSIDE RECORDS SUMMARY | ~2019-08-05 | XMS | Encounter Summary ---
Demographics + + + | Address | [address] | | | [place] [address] | + + + | Home Phone | | + + + | Preferred Language | Unknown | + + + | Marital Status | Single | + + + | Orthodoxy Affiliation | 1041 | + + + | Race | Unknown | + + + | Ethnic Group | Unknown | + + + Author + + + | Author | [facility] | | | and Aurelianoana | + + + | Organization | [facility] | | | and [...] Team Providers + +------+ + | Care Tool Clerk Name | Role | Phone | [...] | | Rehabilitatio | Procedures | PA-C [address] | [address] | | | | n | | [address] | [address] | | | | | | WAY | [place] | | | | | [facility]END [facility] | My[place], | [address] Phone: | | | | | 10/22/14 | [place] [address] | [phone] | | | | | | Phone: | Fax: | | | | | | [phone] | [phone] | | | | | | Fax: | | | | | | | [phone] | | +--------+--------+ + + + + Encounter Details +--------+---------+ + + + | Date | Type | Department | Care Team | Description | +--------+---------+ + + + | 10/22/ | Office | [facility] [place] | ReaganRandy | Right lumbar | | 2014 | Visit | [address]YSIATRY [address] | T, [address] | radiculopathy | | | | [place], | [place], [place] | (Primary Dx); | | | | [place] [address] | [address] | Trochanteric | | | | [phone] | | bursitis of both | | | | | | hips; DDD | | | [...] of the procedure you must provide a corporate driver to take you home. For all procedur [...] in and out of a vehicle w [employer] [place] traveling. The patient was seen in my [...] has no apparent deficits with short or storeperson memory. She has appropriate fund of knowledge [...] + | [facility] | [address] | [place] | [phone] | | [facility] | | [address] | | | - IMAGING | | [...] Trochanteric Bursitis ICD-9 Codes 724.4, 726.5 | [facility] | | Leyla Agosto presents to [...] + | [facility] | [address] | [place] | [phone] | | [facility] | | [address] | | | - IMAGING | | [...]
--- OUTSIDE RECORDS SUMMARY | ~2019-08-05 | XMS | Encounter Summary ---
Demographics + + + | Address | [address] | | | [place] [address] | + + + | Home Phone | | + + + | Preferred Language | Unknown | + + + | Marital Status | Single | + + + | Sabianism Affiliation | 1041 | + + + | Race | Unknown | + + + | Ethnic Group | Unknown | + + + Author + + + | Author | [facility] | | | and Aurelianoana | + + + | Organization | [facility] | | | and Aurelianoana [...] Team Providers + +------+ + | Care Assurance Manager Name | Role | Phone | + [...] | | Rehabilitatio | Procedures | PA-C [address] | [address] | | | | n | | [address] | [address] | | | | | | WAY | [place] | | | | | [facility]END [facility] | Mya, | [address] Phone: | | | | | 10/22/14 | [place] [address] | [phone] | | | | | | Phone: | Fax: | | | | | | [phone] | [phone] | | | | | | Fax: | | | | | | | [phone] | | +--------+--------+ + + + + Encounter Details +--------+---------+ + + + | Date | Type | Department | Care Team | Description | +--------+---------+ + + + | 10/22/ | Office | [facility] [place] | ReaganRandy | Right lumbar | | 2014 | Visit | PHYSIATRY [address] | T, [address] | radiculopathy | | | | [place], | [place], [place] | (Primary Dx); | | | | [place] [address] | [address] | Trochanteric | | | | [phone] | | bursitis of both | | [...] of the procedure you must provide a logging truck driver to take you home. For all [...] in and out of a vehicle w [employer] traveling. The patient was seen in my [...] has no apparent deficits with short or cargo service agent memory. She has appropriate fund of knowledge [...] + | [facility] | [address] | [place] | [phone] | | [facility] | | [address] | | | - IMAGING | | [...] Trochanteric Bursitis ICD-9 Codes 724.4, 726.5 | [facility] | | Leyla Agosto presents to [...] [address] | [place] | [phone] | | [facility] | | [address] | | | - IMAGING | | [...]
--- OUTSIDE RECORDS SUMMARY | ~2019-08-05 | XMS | Encounter Summary ---
Demographics + + + | Address | [address] | | | [place] [address] | + + + | Home Phone | | + + + | Preferred Language | Unknown | + + + | Marital Status | Single | + + + | Moravian Affiliation | 1041 | + + + | Race | Unknown | + + + | Ethnic Group | Unknown | + + + Author + + + | Author | [facility] | | | and Aurelianoana | + + + | Organization | [facility] | | | and [...] Team Providers + +------+ + | Care Shale Miner Blasting Name | Role | Phone | + [...] [address] | | | | | [place], | [address] [place] | | | | | [place] [address] | [address] | | | | | [phone] | | | +--------+ + + + [...]
--- OUTSIDE RECORDS SUMMARY | 2019-08-05 11:28 | XMS ---
PreManage Notification: MARGARITA MILLER Security Senior Research Project Manager Events No recent Security Events currently on file CRITERIA MET - Group Notification - [facility] - Has Care Guidelines CARE PROVIDERS RACIEL ARELLANO Physician Glaucoma Specialist: Surgical 08/09/2018-Current PHONE: Unknown JAMESON SOLOMON [facility] 08/09/2018-Current PHONE: Unknown DR JAMESON SOLOMON Primary Care Current PHONE: [phone] Eleazar has no Care Guidelines for this patient. Care History Medical/Surgical 04/12/2019 [facility] - PATIENT RECENTLY RECEIVED MEDICATIONS DELIVERED ON 04/11/19 -OMEPRAZOLE, ZOFRAN, LISINOPRIL. PCP REFILLED ALL MEDICATIONS - PATIENT LAST PCP APT WAS ON 01/18/19. - PLEASE REFER PATIENT TO [facility] FOR NON EMERGENT MEDICAL NEEDS. 08/09/2018 [facility] \T\middot;\T\nbsp; PATIENT IS A [facility] MEMBER. \T\middot;\T\nbsp; PLEASE REFER PATIENT TO [facility] FOR NON EMERGENT MEDICAL NEEDS. \T\middot;\ T\nbsp; [facility] CAN SEE PATIENTS SAME DAY FOR APTS IF PATIENT CALLS FIRST THING IN THE MORNING. E.D. VISIT COUNT (12 MO.) 6 [facility] TOTAL 6 NOTE: Visits indicate total known visits. 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 04/11/2019 20:58 [facility] TYPE: Emergency COMPLAINT: - N/V/D DIAGNOSES: - Essential (primary) hypertension - Alcoholic gastritis without bleeding - Alcohol induced acute pancreatitis without necrosis or infct - Other termite treater helper (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 - Unspecified asthma, uncomplicated - Epigastric pain - Gastro-esophageal reflux disease without esophagitis - Allergy status to narcotic agent status 03/10/2019 18:25 [facility] TYPE: Emergency COMPLAINT: - LOWER BACK PAIN DIAGNOSES: - Other 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 treater 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 (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 - Allergy status to narcotic agent status - Essential (primary) hypertension - Gastro-esophageal reflux disease without esophagitis - Low back pain 11/04/2018 07:33 [facility] TYPE: Emergency COMPLAINT: - ABD PAIN/VOMITING DIAGNOSES: - Nausea with vomiting, unspecified - Other termite treater helper (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 - Alcoholic gastritis without bleeding - Essential (primary) hypertension - Allergy status to narcotic agent status 08/08/2018 23:34 [facility] TYPE: Emergency COMPLAINT: - CONSTIPATION DIAGNOSES: - Gastro-esophageal reflux disease without esophagitis - Constipation, unspecified - Other termite treater helper (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
[2019-08-05] MEDS ORDERED: NORCO 5-325 TA1 EACH PO (14:27)
[2019-08-05] MEDS ORDERED: KEFLEX500 MG PO (14:27)
[2019-08-05] MEDS ORDERED: ULTRA-LIGHT RO1 EACH MISC (14:30)
== END 2019-08-05 14:49 | disposition home or self-care (01) ==
LOC: ED 11:25
DX: S82.844A Nondisplaced bimalleolar fracture of right lower leg, initial encounter for closed fracture (principal); S81.012A Laceration without foreign body, left knee, initial encounter; F10.10 Alcohol abuse, uncomplicated; W01.198A Fall on same level from slipping, tripping and stumbling with subsequent striking against other object, initial encounter; I10 Essential (primary) hypertension; K21.9 Gastro-esophageal reflux disease without esophagitis; J45.909 Unspecified asthma, uncomplicated; Z88.5 Allergy status to narcotic agent; Z79.899 Other long term (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
CPT/HCPCS: 12002; 73560; 73610; 90471; 90715; 99283-25

== ENCOUNTER 2020-01-02 01:14 | Emergency (ER) | payer MEDICARE, OTHER ==
[~2020-01-02] VITALS: Ht 162.6 cm; Wt 82.1 kg
--- OUTSIDE RECORDS SUMMARY | ~2020-01-02 | XMS | Encounter Summary ---
Demographics + + + | Address | [address] | | | [place] [address] | + + + | Home Phone | | + + + | Preferred Language | Unknown | + + + | Marital Status | Single | + + + | Buddhism Affiliation | 1041 | + + + | Race | Unknown | + + + | Ethnic Group | Unknown | + + + Author + + + | Author | [facility] | | | and Aurelianoana | + + + | Organization | [facility] | | | and Aurelianoana [...] Team Providers + +------+ + | Care Forest Pathologist Name | Role | Phone | + +------+ + | Shirley Alvarez | PCP | | + +------+ + Encounter Details +--------+ + + + + | Date | Type | Department | Care Team | Description | +--------+ + + + + | 05/28/ | Abstract | [facility] [place] | Randy Kirk | | | 2013 | | [address]SIATRY [address] | [address] | | | | | [address] | [address] [place] | | | | | [place] | [address] | | | | | [address] | | | | | | [phone] | | | +--------+ + + + + Social History + +-------+ +--------+------+ | Tobacco Use | Types | Packs/Day | Years | Date | | | | | Used | | + +-------+ +--------+------+ | Never Smoker | | | | | + +-------+ +--------+------+ + + +---------+ + | Alcohol Use | Drinks/Week | oz/Week | Comments | + + +---------+ + | Yes | | | Socially | + + +---------+ + + + + | Sex Assigned at | Date Recorded | | | | + + + | Not on file | | + + + + + + + | Job Start Date | Occupation | Industry | + + + + | Not on file | Not on file | Not on file | + + + + + + + + | Travel History | Travel Start | Travel End | + + + + + + | No recent travel history available. | + + documented as of this encounter Plan of Treatment Not on filedocumented as of this encounter Visit Diagnoses Not on filedocumented in this encounter"
--- OUTSIDE RECORDS SUMMARY | ~2020-01-02 | XMS | Encounter Summary ---
Demographics + + + | Address | [address] | | | [place] [address] | + + + | Home Phone | | + + + | Preferred Language | Unknown | + + + | Marital Status | Single | + + + | Jain Affiliation | 1041 | + + + | Race | Unknown | + + + | Ethnic Group | Unknown | + + + Author + + + | Author | [facility] | | | and Aurelianoana | + + + | Organization | [facility] | | | and Aurelianoana [...] Team Providers + +------+ + | Care Statement Distribution Clerk Name | Role | Phone | + +------+ + PCP | Unavailable | + +------+ + Encounter Details +--------+ + + + + | Date | Type | Department | Care Team | Description | +--------+ + + + + | 05/21/ | Hospital | [facility] | | | | 2001 | Encounter | MED CTR XRAY [address] | | | | | | [place] | | | | | | [place] [address] | | | | | | [phone] | | | +--------+ + + + [...]
--- OUTSIDE RECORDS SUMMARY | ~2020-01-02 | XMS | Encounter Summary ---
Demographics + + + | Address | [address] | | | [place] [address] | + + + | Home Phone | | + + + | Preferred Language | Unknown | + + + | Marital Status | Single | + + + | Orthodoxy Affiliation | 1041 | + + + | Race | Unknown | + + + | Ethnic Group | Unknown | + + + Author + + + | Author | [facility] | | | and Aurelianoana | + + + | Organization | [facility] | | | and [...] Team Providers + +------+ + | Care Bomb Loader Name | Role | Phone | + +------+ + | Israel Farooq DO | PCP | | + +------+ + Reason for Visit + + + | Reason | Comments | + + + | Back Pain | low back pain radiating down right leg | + + + Evaluate & Treat (Routine) +--------+--------+ + + + + | Status | Reason | Specialty | Diagnoses / | Referred By | Referred To | | | | | Procedures | Contact | Contact | +--------+--------+ + + + + | Closed | | Physical | Diagnoses | Michael, | Reagan, | | | | Medicine and | Back pain | Dereje Joe, | Randy Villar MD | | | | Rehabilitatio | Procedures | PA-C [address] | [address] | | | | n | | [address] | | | | | | [address] | [place] | | | | | [facility] | [place], | [address] Phone: | | | | | 10/22/14 | [place] [address] | [phone] | | | | | | Phone: | Fax: | | | | | | [phone] | [phone] | | | | | | Fax: | | | | | | | [phone] | | +--------+--------+ + + + + Encounter Details +--------+---------+ + + + | Date | Type | Department | Care Team | Description | +--------+---------+ + + + | 10/22/ | Office | [facility] [place] | Hongluisajosé antonioRandy manzanares | Right lumbar | | 2014 | Visit | PHYSIATRY [address] | radiculopathy | | | | [address] | [address] [place] | (Primary Dx); | | | | [place] | [address] | Trochanteric | | | | [address] | | bursitis of both | | | | [phone] | | hips; DDD | | | | | | (degenerative disc | | | | | | disease), lumbar- | | | | | | severe at multiple | | | | | | levels; Foraminal | | | | | | stenosis of lumbar | | | | | | region; Hip | | | | | | arthritis-mild on | | | | | | the right; Spinal | | | | | | stenosis of lumbar | | | | | | region-moderate | | | | | | worst at L3-L4 | +--------+---------+ + + + Social History + +-------+ [...] this encounter Last Filed Vital Signs + + + + + | Vital Sign | Reading | Time Taken | Comments | + + + + + | Blood Pressure | 141/95 | 10/22/2014 11:52 AM | | | | | PDT | | + + + + + | Pulse | 80 | 10/22/2014 11:52 AM | | | | | PDT | | + + + + + | Temperature | - | - | | + + + + + | Respiratory Rate | - | - | | + + + + + | Oxygen Saturation | - | - | | + + + + + | Inhaled Oxygen | - | - | | | Concentration | | | | + + + + + | Weight | 83.9 kg (185 lb) | 10/22/2014 11:52 AM | | | | | PDT | | + + + + + | Height | 162.6 cm (5' 4") | 10/22/2014 11:52 AM | | | | | PDT | | + + + + + | Body Mass Index | 31.76 | 10/22/2014 11:52 AM | | | | | PDT | | + + + + + documented in this encounter Patient Instructions Patient Instructions Debbie Ann, Master of Arts - 10/22/2014 12:15 PM PDT Follow-up at the hospital thirty minutes before your scheduled procedure to allow for time to check in. You may eat and drink as usual on the day of the procedure. If you are scheduled for an epidural injection do not take any blood thinning medications f or at least 5-7 days prior to your procedure unless you have been instructed by another phys ician not to discontinue blood thinning medications. If you are having a procedure other than an epidural injection (i.e. facet injection, media l branch block, SI joint injection or other joint injection) it is not absolutely necessary to discontinue blood thinning medications but doing so will decrease the risk of bruising or bleeding. If you have had a prior stroke, DVT or PE or if you are taking blood thinning medication be cause you have atrial fibrillation, a prosthetic cardiac valve replacement or heart stenting do not stop taking your blood thinning medications unless you have permission from your car diologist or primary care provider. All other medications should be taken as usual on the day of the procedure. Common blood thinning medications include: Aspirin (a baby aspirin is o.k.) Ibuprofen (Advil or Motrin) Naproxen (Aleve) Nabumetone (Relafen) Clopidogrel (Plavix) Dipyridamole/ASA (Aggrenox) Warfarin (Coumadin) Dabigatran (Pradaxa) Rivaroxaban (Xarelto) There are many others. If you have questions about your medications and whether or not you should stop any medications please contact our office. If you are having an epidural injection or if you take any medication for relaxation/sedati on on the day of the procedure you must provide a school bus driver/teacher assistant to take you home. For all procedur es it is recommended that someone else drive you home. documented in this encounter Progress Notes Randy Kirk MD - 10/22/2014 12:06 PM PDT CHIEF COMPLAINT: Chief Complaint Patient presents with Back Pain low back pain radiating down right leg HISTORY OF PRESENT ILLNESS: The patient is a 64 y.o. female being seen today in follow up for complaints of low back pain that radiates into the right buttock and down the right leg that began in April of 2014. The symptoms began after getting in and out of a vehicle w [employer] traveling. The patient was seen in my office in June at which time I gave her a pre scription for physical therapy. The patient started physical therapy but reports it did not help and she even feels that it made the pain worse. The patient also notes that in August of this year she had a fall in the mud which has made the pain flare up even more. Her symptoms worsen with walking and when getting in and out of a vehicle. Her symptoms improve with changing positions. Since the symptoms began, she has noticed that symptoms have been chronic. She describes th e pain as a sharp/throbbing feeling. She rates the pain as moderate. The patient also describes leg symptoms that occur on right side. The leg symptoms account for nearly 100% of her symptoms. The leg symptoms are constant and the symptoms travel fro m the buttock region down into the hip/groin and further down the leg. The hip and groin pa in does not necessarily always occur at the same time as the leg pain. The patient does not describe numbness. She does report weakness of the right leg. She d oes not have bowel and bladder dysfunction. She does not have saddle anesthesia. Treatments for these complaints have included the PT and medications. She is currently charlene ing cyclobenzaprine and ibuprofen. She also had one prior unguided injection done in her doc tors office. It is not clear what that targeted. Patient's medications, allergies, past medical, surgical, social and family histories were reviewed and updated as appropriate. CURRENT MEDICATIONS: Current Outpatient Prescriptions Medication Sig Dispense Refill cyclobenzaprine (FLEXERIL) 10 mg tablet Take 10 mg by mouth 3 times daily as needed. famotidine (PEPCID) 20 mg tablet Take 20 mg by mouth 2 times daily. folic acid 1 mg tablet Take 1 mg by mouth Daily. ibuprofen (ADVIL, MOTRIN) 200 mg tablet Take 200 mg by mouth every 6 hours as needed fo r Pain. lisinopril (PRINIVIL, ZESTRIL) 10 mg tablet Take 10 mg by mouth Daily. mometasone-formoterol (DULERA) 100-5 mcg/puff inhaler Inhale 2 puffs into the lungs Twi ce Daily. Multiple Vitamin (MULTI VITAMIN DAILY PO) Take by mouth. nitrofurantoin (MACROBID) 100 mg capsule Take 100 mg by mouth 2 times daily. omeprazole (PRILOSEC) 40 MG capsule Take 40 mg by mouth every morning (before breakfast ). phenazopyridine (PYRIDIUM) 100 mg tablet Take 100 mg by mouth 3 times daily as needed. potassium citrate (UROCIT-K) 10 mEq SR tablet Take 10 mEq by mouth 3 times daily (with meals). No current facility-administered medications for this visit. ALLERGIES: Allergies Allergen Reactions Codeine Nausea Only REVIEW OF SYSTEMS: GENERALLY: No fever, chills, no night sweats, no weight gain, + weight loss, no anemia, n o fatigue. EYES: No eye problems, no impaired sight, no eye glasses/contacts, + eye injury, no double vision, no transient blindness. EARS, NOSE, THROAT and MOUTH: No change in sense taste/smell, no hearing difficulty, no ri nging in ears, no drainage from ears, no ear injury, no dizziness, no voice change, no diffi culty swallowing, no snoring, no sleep apnea/CPAP, no sinus trouble, no dental work. NEUROMUSCULAR: No numbness/pain of arms, no numbness/pain of legs, no awake with numbness/ pain, no weakness, no muscle aching, no coordination difficulty, + change in walk, no head i njury, no neck injury, no back injury, no pain in neck, + pain in back, no stroke, no fainti ng spells, no loss of consciousness, no tremor/shaking, no seizures, no headaches, no migrai santiago, no memory loss, no speech difficulty, no confusion, no numbness of face. PSYCHIATRIC: No depression, no difficulty sleeping, no anxiety, no bipolar disorder. CARDIOVASCULAR/PULMONARY: No heart attack, no heart murmur, no fluttering heart, no shortn ess of breath, no cough, no Tuberculosis, no chest pain, no swelling ankles, no bloody cough ing, no asthma, no COPD/emphysema. GASTROINTESTINAL: No bowel disease, + nausea, no rectal bleeding/hemorroids, no constipati on, no fecal/stool incontinence, no liver/gallbladder disease, no abdominal pain. GENITOURINARY: No frequent urination, no painful/difficult urination, no urinary incontinen ce, no bladder problems. ENDOCRINE: No diabetes, no thyroid disease, no osteoporosis/osteopenia, no drainage from br easts. INTEGUMENTARY/SKIN: No lump in breasts, no skin disease or skin changes, no rash/itch. HEMATOLOGIC: No enlarged lymph nodes, no easy or unusual bleeding, no cancer. RHEUMATOLOGIC: + joint pain/arthritis, no rheumatoid arthritis PHYSICAL EXAMINATION: Blood pressure 141/95, pulse 80, height 1.626 m (5' 4"), weight 83.915 kg (185 lb). Body ma ss index is 31.74 kg/(m^2). GENERAL: The patient is well developed and well nourished. She does not appear uncomfortab le when seated. HEENT: HEAD/FACE: EYES: Normocephalic and atraumatic. There are no areas of recent trauma. Normal sclerae without icterus. SKIN Limited skin exam shows no significant rashes or lesions. There are not scars in the lumbar or hip regions. CHEST: The patient is in no acute respiratory distress with unlabored respirations. HEART: There is not lower extremity edema. ABDOMEN: The patient is overweight. NEUROLOGIC: The patient is awake, alert, and oriented to time, place, person. She follows simple and complex commands. Her speech is fluent. She comprehends speech well. She has no apparent deficits with short or prison memory. She has appropriate fund of knowledge Cranial nerves 2-12 appear grossly intact. Sensory exam does not show diminished sensation to light touch in the upper and lower extre mities. REFLEX: RIGHT LEFT PATELLAR 2+ 2+ ACHILLES 2+ 2+ PLANTAR Downgoing Downgoing MUSCULOSKELETAL There is no major palpable deformity of the spine. Straight leg raise and slump-sit are negative. Eyad's maneuver and impingement testing were positive for groin pain on the right although she did have good range of motion. Ther e was tenderness to palpation over the greater trochanters bilaterally, very mild over the s acral sulci. The patient localized the majority of the pain to the right buttock and into t he right groin. Lumbar facet loading was negative. Strength testing showed 5/5 strength th roughout the lower extremities. The patient was able to heel and toe walk without difficulty . There was no redness, effusion, warmth or joint line tenderness in the knees or ankles. T he patient walks with a Trendelenburg gait RADIOGRAPHIC REVIEW: The patient's imaging was reviewed in detail with the patient today during the visit. The images include an MRI of the lumbar spine which shows multilevel DDD with at least moderate spinal stenosis and foraminal stenosis at several levels. X-rays of the right hip show only mild arthritis. DDD (degenerative disc disease), lumbar - severe at multiple levels Foraminal stenosis of lumbar region - bilateral at the lower lumbar levels Spinal stenosis of lumbar region - moderate, worst at L3-L4 Hip arthritis -mild on the right . ASSESSMENT: 1. Lumbar radiculopathy primarily right lower extremity 2. DDD (degenerative disc disease), lumbar- severe at multiple levels 3. Foraminal stenosis of lumbar region 4. Spinal stenosis of lumbar region-moderate, worst at L3-L4 5. Trochanteric bursitis of both hips, right greater than left 6. Hip arthritis - mild on the right. Her groin pain seems out of proportion to the findin gs on x-ray suggesting a possible labral tear. PLAN: 1. The patient has failed PT and continues to have significant discomfort. She seems like an appropriate candidate for interventional procedures. I offered a right S1 transforaminal epidural steroid injection as well as a right trochanteric bursa injection as the next step . 2. If the groin pain continues even after the back injection and trochanteric bursa inject ion further work-up for that may be appropriate. That would include an MR arthrogram and/or a diagnostic/therapeutic hip injection. 3. The patient was advised to follow up with our office approximately 2-3 weeks after the i njections have been performed. ELECTRONICALLY EDITED AND SIGNED BY: Randy Kirk MD, 10/22/2014 Scribed by: Debbie Ann MA for Dr. Randy Kirk on 10/22/2014 documented in this encounter Plan of Treatment Not on filedocumented as of this encounter Results [place] Asp Inj Intermediate [...] | + + + + + | [facility] | [address] | [place] | [phone] | | [facility] | | [address] | | | - IMAGING | | [...] Trochanteric Bursitis ICD-9 Codes 724.4, 726.5 | [facility] | | Leyla Agosto presents to the [...] ST. | [address] | [place] | [phone] | | [facility] | | [address] | | | - IMAGING | | | | + + + + + documented in this encounter Visit Diagnoses + + | Diagnosis | + + | Right lumbar radiculopathy - Primary Thoracic or lumbosacral neuritis or radiculitis, | | unspecified | + + | Trochanteric bursitis of both hips Enthesopathy of hip region | + + | DDD (degenerative disc disease), lumbar- severe at multiple levels Degeneration of | | lumbar or lumbosacral intervertebral disc | + + | Foraminal stenosis of lumbar region Spinal stenosis, lumbar region, without | | neurogenic claudication | + + | Hip arthritis-mild on the right Unspecified arthropathy, pelvic region and thigh | + + | Spinal stenosis of lumbar region-moderate worst at L3-L4 Spinal stenosis, lumbar | | region, without neurogenic claudication | + + documented in this encounter
--- OUTSIDE RECORDS SUMMARY | ~2020-01-02 | XMS | Clinical Summary ---
Demographics + + + | Address | [address] | | | [place] [address] | + + + | Home Phone | | + + + | Preferred Language | Unknown | + + + | Marital Status | Single | + + + | Sabianist Affiliation | 1041 | + + + | Race | Unknown | + + + | Ethnic Group | Unknown | + + + Author + + + | Author | [facility] | | | and Aurelianoana | + + + | Organization | [facility] | | | and Aurelianoana [...] Team Providers + +------+ + | Care Locomotive Boilermaker Name | Role | Phone | + +------+ + | Israel Farooq DO | PCP | | + +------+ + Allergies + + + + + + | Active Allergy | Reactions | Severity | Noted | Comments | | | | | Date | | + + + + + + | Codeine | Nausea Only | | 05/28/20 | | | | | | 14 | | + + + + + + Medications + + + +---------+------+------+-------+ | Medication | Sig | Dispensed | Refills | Star | End | Statu | | | | | | t | Date | s | | | | | | Date | | | + + + +---------+------+------+-------+ | omeprazole | Take 40 mg by mouth | | 0 | | | Activ | | (PRILOSEC) 40 MG | every morning | | | | | e | | capsule | (before breakfast). | | | | | | + + + +---------+------+------+-------+ | lisinopril | Take 10 mg by mouth | | 0 | | | Activ | | (PRINIVIL, ZESTRIL) | Daily. | | | | | e | | 10 mg tablet | | | | | | | + + + +---------+------+------+-------+ | cyclobenzaprine | Take 10 mg by mouth | | 0 | | | Activ | | (FLEXERIL) 10 mg | 3 times daily as | | | | | e | | tablet | needed. | | | | | | + + + +---------+------+------+-------+ | famotidine | Take 20 mg by mouth | | 0 | | | Activ | | (PEPCID) 20 mg | 2 times daily. | | | | | e | | tablet | | | | | | | + + + +---------+------+------+-------+ | nitrofurantoin | Take 100 mg by mouth | | 0 | | | Activ | | (MACROBID) 100 mg | 2 times daily. | | | | | e | | capsule | | | | | | | + + + +---------+------+------+-------+ | potassium citrate | Take 10 mEq by mouth | | 0 | | | Activ | | (UROCIT-K) 10 mEq SR | 3 times daily (with | | | | | e | | tablet | meals). | | | | | | + + + +---------+------+------+-------+ | Multiple Vitamin | Take by mouth. | | 0 | | | Activ | | (MULTI VITAMIN DAILY | | | | | | e | | PO) | | | | | | | + + + +---------+------+------+-------+ | phenazopyridine | Take 100 mg by mouth | | 0 | | | Activ | | (PYRIDIUM) 100 mg | 3 times daily as | | | | | e | | tablet | needed. | | | | | | + + + +---------+------+------+-------+ | folic acid 1 mg | Take 1 mg by mouth | | 0 | | | Activ | | tablet | Daily. | | | | | e | + + + +---------+------+------+-------+ | | Inhale 2 puffs into | | 0 | | | Activ | | mometasone-formotero | the lungs Twice | | | | | e | | l (DULERA) 100-5 | Daily. | | | | | | | mcg/puff inhaler | | | | | | | + + + +---------+------+------+-------+ | ibuprofen (ADVIL, | Take 200 mg by mouth | | 0 | | | Activ | | MOTRIN) 200 mg | every 6 hours as | | | | | e | | tablet | needed for Pain. | | | | | | + + + +---------+------+------+-------+ Active Problems + + + | Problem [...] recent travel history available. | + + Last Filed Vital Signs + [...] | | + + + + + Plan of Treatment + + + + + | Health Maintenance | Due Date | Last Done | Comments | + + + + + | Vaccine: | | | | | Dtap/Tdap/Td (1 - | 1 | | | | Tdap) | | | | + + + + + | Vaccine: Zoster (1 | | | | | of 2) | 0 | | | + + + + + | Breast Cancer | | | | | Screening | 5 | | | + + + + + | Vaccine: | | | | | Pneumococcal 65+ (1 | 5 | | | | of 2 - PCV13) | | | | + + + + + | Vaccine: Influenza | | | | | (Season Ended) | 0 | | | + + + + + Results Not on filefrom Last 3 Months Insurance + +--------+ +--------+ +---------+--------+ | Payer | Benefi | Subscriber | Effect | Phone | Address | Type | | | t Plan | ID | yuki | | | | | | / | | Dates | | | | | | Group | | | | | | + +--------+ +--------+ +---------+--------+ | [place] | MEDICA | [id number] | 06/28/ | [phone] | | Medica | | | ID | | 2011-P | 2 | | id | | | [place] | | resent | | | | + +--------+ +--------+ +---------+--------+ | [facility] | IHS | [id number] | | | | Indemn | | SERVICE | YELLOW | | 014-Pr | | | ity | | | [place] | | esent | | | | + +--------+ +--------+ +---------+--------+ + +--------+ +--------+ + + | Guarantor Name | Accoun | Relation to | Date | Phone | Billing Address | | | t Type | Patient | of | | | | | | | | | | + +--------+ +--------+ + + | Leyla Agosto | Person | Self [birth year] | [address] | | | al/Fam | | 1950 | [phone] | [place] [address] | | | steve | | | 9 (Home) | | + +--------+ +--------+ + + Advance Directives + + + + + | Type | Date Recorded | Patient | Explanation | | | | Legal Service Specialist | | + + + + + | Power of | | | | | Catalogue Clerk | | | | + + + + + | Advance | | | | | Directive | | | | + + + + +
--- OUTSIDE RECORDS SUMMARY | ~2020-01-02 | XMS | Encounter Summary ---
Demographics + + + | Address | [address] | | | [place] [address] | + + + | Home Phone | | + + + | Preferred Language | Unknown | + + + | Marital Status | Single | + + + | Scientologist Affiliation | 1041 | + + + | Race | Unknown | + + + | Ethnic Group | Unknown | + + + Author + + + | Author | [facility] | | | and Aurelianoana | + + + | Organization | [facility] | | | and Aurelianoana [...] Team Providers + +------+ + | Care Media Analyst Name | Role | Phone | [...] | | [address] | [place] [address] | | | | | [place] | [phone] | | | | | [address] | | | | | | [phone] | | | +--------+ + + + [...]
--- OUTSIDE RECORDS SUMMARY | ~2020-01-02 | XMS | Encounter Summary ---
Demographics + + + | Address | [address] | | | [place] [address] | + + + | Home Phone | | + + + | Preferred Language | Unknown | + + + | Marital Status | Single | + + + | Adventism Affiliation | 1041 | + + + | Race | Unknown | + + + | Ethnic Group | Unknown | + + + Author + + + | Author | [facility] | | | and Aurelianoana | + + + | Organization | [facility] | | | and Aurelianoana [...] Team Providers + +------+ + | Care Deicer Finisher Name | Role | Phone | + +------+ + | Dereje Rodriguez PA-C | PCP | | + +------+ + Reason for Referral Evaluate & Treat (Routine) +--------+ + + + + + | Status | Reason | Specialty | Diagnoses / | Referred By | Referred To | | | | | Procedures | Contact | Contact | +--------+ + + + + + | Closed | Specialty | Physical | Diagnoses | | OP ST | | | Services | Therapy | Lumbar | Reagan, | JAY | | | Required | | radiculopath | Randy Villar MD | HOSPITAL | | | | | y DDD | [address] | [address] | | | | | (degenerativ | [address] [place] | AVE | | | | | e disc | [place], [place] | [place], [place] | | | | | disease), | [address] | [address] | | | | | lumbar | Phone: | Phone: | | | | | [place] | [phone] | [phone] | | | | | stenosis of | Fax: | Fax: | | | | | lumbar | [phone] | [phone] | | | | | region | | | | | | | Spinal | | | | | | | stenosis of | | | | | | | lumbar | | | | | | | region | | | | | | | Trochanteric | | | | | | | bursitis of | | | | | | | both hips | | | | | | | Hip | | | | | | | arthritis | | | +--------+ + + + + + Reason for Visit + + + | Reason | Comments | + + + | Back Pain | Low back pain that radiates into the right buttock and down the | | | right leg | + + + Evaluate [...] | | | | Medicine and | Spinal | Dereje Joe, | Randy Villar MD | | | | Rehabilitatio | stenosis, | PA-C [address] | [address] | | | | n | other region | [address] | [address] | | | | | Sciatica | WAY | [place] | | | | | | [place], | [address] Phone: | | | | | | [place] [address] | [phone] | | | | | | Phone: | Fax: | | | | | | [phone] | [phone] | | | | | | Fax: | | | | | | | [phone] | | +--------+--------+ + + + + Encounter Details +--------+---------+ + + + | Date | Type | Department | Care Team | Description | +--------+---------+ + + + | 06/04/ | Office | [facility] | Randy Kirk | Lumbar radiculopathy | | 2013 | Visit | PHYSIATRY [address] | T, [address] | primarily right | | | | [address] | [place] | lower extremity | | | | [place] | [address] | (Primary Dx); DDD | | | | [address] | | (degenerative disc | | | | [phone] | | disease), lumbar- | | | | | | severe at multiple | | | | | | levels; Foraminal | | | | | | stenosis of lumbar | | | | | | region; Spinal | | | | | | stenosis of lumbar | | | | | | region-moderate | | | | | | worst at L3-L4; | | | | | | Trochanteric | | | | | | bursitis of both | | | | | | hips; Hip | | | | | | arthritis-mild on | | | | | | the right | +--------+---------+ + + + Social History [...] + + + | Blood Pressure | 133/89 | 06/04/2014 9:06 AM | | | | | PST | | + + + + + | Pulse | 84 | 06/04/2014 9:06 AM | | | | | PST | | + + + + + [...] Weight | 83.9 kg (185 lb) | 06/04/2014 9:06 AM | | | | | PST | | + + + + + | Height | 162.6 cm (5' 4") | 06/04/2014 9:06 AM | | | | | PST | | + + + + + | Body Mass Index | 31.76 | 06/04/2014 9:06 AM | | | | | PST | | + + + + + documented in this encounter Progress Notes Randy Kirk MD - 06/04/2014 9:31 AM PST CHIEF COMPLAINT: Chief Complaint Patient presents with Back Pain Low back pain that radiates into the right buttock and down the right leg HISTORY OF PRESENT ILLNESS: The patient is a 63 y.o. female being seen today at the [facility] of Brandyn Rodriguez PA-C for complaints of low back pain that radiates into the right buttock and down the right leg that began in April of 2014. The symptoms began after getting in and out of a vehicle while traveling. Her symptoms worsen with walking and when getting in and out of a vehicle. Her symptoms improve with changing positions. Since the symptoms began, she has noticed that symptoms have been chronic. She describes th e pain as a sharp/throbbing feeling. She rates the pain as moderate. The patient also describes leg symptoms that occur on right side. The leg symptoms account for 100% of her symptoms. The leg symptoms are constant and the symptoms travel from the b uttock region down into the hip/groin and further down the leg. The hip and groin pain does not necessarily always occur at the same time as the leg pain. The patient does not describe numbness. She does report weakness of the right leg. She d oes not have bowel and bladder dysfunction. She does not have saddle anesthesia. Treatments for these complaints have included she is currently taking cyclobenzaprine. She also had one prior unguided injection done in her doctors office. It is not clear what that targeted. Patient's medications, allergies, past medical, surgical, social and family histories were reviewed and updated as appropriate. PAST MEDICAL HISTORY: Past Medical History Diagnosis Date Anxiety Gastric reflux High blood pressure PAST SURGICAL HISTORY: Past Surgical History Procedure Date section, classic 1972,1976,1978 [facility] Cholecystectomy 2004 CURRENT MEDICATIONS: Current Outpatient Prescriptions Medication Sig Dispense Refill cyclobenzaprine (FLEXERIL) 10 mg tablet Take 10 mg by mouth 3 times daily as needed. famotidine (PEPCID) 20 mg tablet Take 20 mg by mouth 2 times daily. folic acid 1 mg tablet Take 1 mg by mouth Daily. lisinopril (PRINIVIL, ZESTRIL) 10 mg tablet Take [...] by mouth 3 times daily (with meals). ALLERGIES: Allergies Allergen Reactions Codeine Nausea Only SOCIAL HISTORY: The patient reports that she has never smoked. She does not have any smokeless tobacco his tory on file. She reports that she drinks alcohol. She reports that she uses illicit drugs ( Marijuana). FAMILY HISTORY: Family History Problem Relation Age of Onset Alcohol abuse Mother and father Diabetes Father Heart defect Mother REVIEW OF SYSTEMS: GENERALLY: No fever, chills, [...] joint pain/arthritis, no rheumatoid arthritis PHYSICAL EXAMINATION: Height 1.626 m (5' 4"), weight 83.915 kg (185 lb). Body mass index is 31.74 kg/(m^2). GENERAL: The patient [...] There is not lower extremity edema. ABDOMEN: Soft, non-tender, non-distended, and without palpable masses. The patient is obe se. NEUROLOGIC: The patient is awake, alert, and oriented to time, place, person. She follows simple and complex commands. Her speech is fluent. She comprehends speech well. She has no apparent deficits with short or termite treater helper memory. She has appropriate fund of knowledge Cranial nerves 2-12 appear grossly intact. Sensory exam does not show diminished sensation to light touch in the upper and lower extr emities. REFLEX: RIGHT LEFT PATELLAR 2+ 2+ ACHILLES 2+ 2+ PLANTAR Downgoing Downgoing MUSCULOSKELETAL There is no major palpable deformity of the spine. Straight leg raise and slump-sit are negative. Eyad's maneuver and impingement testing were slightly positive for groin pain on the right although she did have good range of motio n. There was tenderness to palpation over the greater trochanters bilaterally, very mild o r sacral sulci. The patient localized the majority of the pain to the region. Lumbar face t loading was negative. Strength testing showed 5/5 strength throughout the lower extremiti es. The patient was able to heel and toe walk without difficulty. There was no redness, ef fusion, warmth or joint line tenderness in the knees or ankles. RADIOGRAPHIC REVIEW: The patient's imaging was reviewed in detail with the patient today during the visit. The images show: DDD (degenerative disc disease), lumbar - severe [...] lumbar region 4. Spinal stenosis of lumbar region-moderate worst at L3-L4 5. Trochanteric bursitis of both hips, right greater than left 6. Hip arthritis - mild on the right. Her groin pain seems out of proportion to the findin gs on x-ray suggesting a possible labral tear. PLAN: 1. The patient has not yet had any physical therapy for these issues. I felt that would be a good place to start and the patient was in agreement. The patient was given a prescriptio n for physical therapy today. She was informed that if she is still having a lot of pain aft er therapy is completed she should contact our office for a follow up appointment. 2. The patient may be a candidate for interventional procedures if she does not improve wit h PT. I would offer a right S1 transforaminal epidural steroid injection as well as a right trochanteric bursa injection in the future if her symptoms are the same as they are today. 3. If the groin pain continues further work-up for that may be appropriate. That would in clude an MR arthrogram and/or a diagnostic/therapeutic hip injection. ELECTRONICALLY EDITED AND SIGNED BY: Randy Kirk MD, 06/04/2014 Scribed by: Debbie Ann MA for Dr. Randy Kirk on 06/04/2014 documented in this encounter Plan of Treatment + + +--------+ + + | Name | Type | Priori | Associated Diagnoses | Order Schedule | | | | ty | | | + + +--------+ + + | Ambulatory referral | Outpatient | Routin | Lumbar | Ordered: 06/04/2014 | | to Physical Therapy | Referral | e | radiculopathy | | | | | | primarily right | | | | | | lower extremity DDD | | | | | | (degenerative disc | | | | | | disease), lumbar- | | | | | | severe at multiple | | | | | | levels Foraminal | | | | | | stenosis of lumbar | | | | | | region Spinal | | | | | | stenosis of lumbar | | | | | | region-moderate | | | | | | worst at L3-L4 | | | | | | Trochanteric | | | | | | bursitis of both | | | | | | hips Hip | | | | | | arthritis-mild on | | | | | | the right | | + + +--------+ + + documented as of this encounter Visit Diagnoses + + | Diagnosis | + + | Lumbar radiculopathy primarily right lower extremity - Primary Thoracic or | | lumbosacral neuritis or radiculitis, unspecified | + + | DDD (degenerative disc disease), lumbar- severe at multiple levels Degeneration of | | lumbar or lumbosacral intervertebral disc | + + | Foraminal stenosis of lumbar region Spinal stenosis, lumbar region, without | | neurogenic claudication | + + | Spinal stenosis of lumbar region-moderate worst at L3-L4 Spinal stenosis, lumbar | | region, without neurogenic claudication | + + | Trochanteric bursitis of both hips Enthesopathy of hip region | + + | Hip arthritis-mild on the right Unspecified arthropathy, pelvic region and thigh | + + documented in this encounter
--- OUTSIDE RECORDS SUMMARY | ~2020-01-02 | XMS | Encounter Summary ---
Demographics + + + | Address | [address] | | | [place] [address] | + + + | Home Phone | | + + + | Preferred Language | Unknown | + + + | Marital Status | Single | + + + | Presybeterian Affiliation | 1041 | + + + | Race | Unknown | + + + | Ethnic Group | Unknown | + + + Author + + + | Author | [facility] | | | and Aurelianoana | + + + | Organization | [facility] [...] Team Providers + +------+ + | Care Blockmason Name | Role | Phone | + +------+ + PCP | Unavailable | + +------+ + Encounter Details +--------+ + + + + | Date | Type | Department | Care Team | Description | +--------+ + + + + | 05/10/ | Hospital | [facility] | | | | 2001 | Encounter | MED CTR GENERIC OP | | | | | | CONV DEPT [address] | | | | | | [place], | | | | | | [place] [address] | | | | | | [phone] | | | +--------+ + + + [...]
--- OUTSIDE RECORDS SUMMARY | ~2020-01-02 | XMS | Encounter Summary ---
Demographics + + + | Address | [address] | | | [place] [address] | + + + | Home Phone | | + + + | Preferred Language | Unknown | + + + | Marital Status | Single | + + + | Latter-Day Affiliation | 1041 | + + + | Race | Unknown | + + + | Ethnic Group | Unknown | + + + Author + + + | Author | [facility] | | | and Aurelianoana | + + + | Organization | [facility] | | | and Aurelianoana [...] Team Providers + +------+ + | Care Harvest Crew Supervisor Name | Role | Phone | [...] Thoracic or | [place], | [address] | | | | | lumbosacral | Randy Villar MD | [place], | | | | | neuritis or | [address] | [place] | | | | | | [place] | [address] | | | | | radiculitis, | [place], [place] | Phone: | | | | | unspecified | [address] | [phone] | | | | | | Phone: | Fax: | | | | | Trochanteric | [phone] | [phone] | | | | | bursitis of | Fax: | | | | | | right hip | [phone] | | | | | | Procedures | | | | | | | CT | | | | | | | ARTHROCENTES | | | | | | | IS | | | | | | | ASPIR&/INJ | | | | | | | MAJOR | | | | | | | JT/BURSA W/O | | | | | | | US CT | | | | | | | INJECT | | | | | | | ANES/STEROID | | | | | | | FORAMEN | | | | | | | LUMBAR/SACRA | | | | | | | L W IMG | | | | | | | GUIDE ,1 | | | | | | | LEVEL CT | | | | | | | [...] + + | 11/25/ | Hospital | [facility] | Hongluis ajosé antonioleightonRandy | Lumbar radiculopathy | | 2015 | Encounter | MED CTR XRAY [address] | T, [address] | (Primary Dx); Right | | | | [address] [place] | [place], [place] | lumbar | | | | [place] [address] | [address] | radiculopathy; | | | | [phone] | | Trochanteric | | | | | [place] | bursitis of both | | | | | [place] | hips | +--------+ + + + [...] + | [facility] | [address] | [place], [place] | [phone] | | [facility] | | [address] | | | - IMAGING | | [...] | + + + + + | [facility] [facility] | [address] | [place] | [phone] | | [facility] | | [address] | | | - IMAGING | | [...]
--- OUTSIDE RECORDS SUMMARY | ~2020-01-02 | XMS | Encounter Summary ---
Demographics + + + | Address | [address] | | | [place] [address] | + + + | Home Phone | | + + + | Preferred Language | Unknown | + + + | Marital Status | Single | + + + | Worship Affiliation | 1041 | + + + | Race | Unknown | + + + | Ethnic Group | Unknown | + + + Author + + + | Author | [facility] | | | and Aurelianoana | + + + | Organization | [facility] | | | and Aurelianoana | + + + | Address | Unknown | + + + | Phone | Unavailable | + + + Support + + +---------+ + | Name | Relationship | Address | Phone | + + +---------+ + | iDego Cunha | ECON | Unknown | | + + +---------+ + Care Team Providers + +------+ + | Care Corn Husker Machine Operator Name | Role | Phone | [...] | | | | | disease), | [address] | [address] | | | | | lumbar | Phone: | Phone: | | | | | [place] | [phone] | [phone] | | | | | stenosis of | Fax: | Fax: | | | | | lumbar | [phone] | [phone] | | | | | region | [...] | | Rehabilitatio | stenosis, | PA-C [address] | [address] | | | | n | other region | [address] | [address] | | | | | Sciatica | WAY | [place] | | | | | | [place]a, | [address] Phone: | | | | | | [place] [address] | [phone] | | | | | | Phone: | Fax: | | | | | | [phone] | [phone] | | | | | | Fax: | | | | | | | [phone] | | +--------+--------+ + + + + Encounter Details +--------+---------+ + + + | Date | Type | Department | Care Team | Description | +--------+---------+ + + + | 06/04/ | Office | [facility] | Randy Kirk | Lumbar radiculopathy | | 2013 | Visit | PHYSIATRY [address] | T[address] | primarily right | | | | [address] | [place] | lower extremity | | | | [place] | [address] | (Primary Dx); DDD | | | | [address] | | (degenerative disc | | | | [phone] | | disease), lumbar- | | | [...] y.o. female being seen today at the [facility] of Brandyn Rodriguez PA-C for complaints of [...] Surgical History Procedure Date section, classic 1972,1976,1978 [facility] Cholecystectomy 2004 CURRENT MEDICATIONS: Current Outpatient Prescriptions [...] has no apparent deficits with short or terminal carman memory. She has appropriate fund of knowledge [...]
--- OUTSIDE RECORDS SUMMARY | ~2020-01-02 | XMS | Encounter Summary ---
Demographics + + + | Address | [address] | | | [place] [address] | + + + | Home Phone | | + + + | Preferred Language | Unknown | + + + | Marital Status | Single | + + + | Roman Catholic Affiliation | 1041 | + + + | Race | Unknown | + + + | Ethnic Group | Unknown | + + + Author + + + | Author | [facility] | | | and Aurelianoana | + + + | Organization | [facility] | | | and Aurelianoana [...] Team Providers + +------+ + | Care Pharmacy Coordinator Name | Role | Phone | + +------+ + PCP | Unavailable | + +------+ + Encounter Details +--------+ + + + + | Date | Type | Department | Care Team | Description | +--------+ + + + + | 05/21/ | Hospital | [facility] | | | | 2001 | Encounter | MED CTR XRAY [address] | | | | | | [place] [address] | | | | | | [place] [address] | | | | | | [phone] | | | +--------+ + + + [...]
--- OUTSIDE RECORDS SUMMARY | ~2020-01-02 | XMS | Encounter Summary ---
Demographics + + + | Address | [address] | | | [place] [address] | + + + | Home Phone | | + + + | Preferred Language | Unknown | + + + | Marital Status | Single | + + + | Anabaptism Affiliation | 1041 | + + + | Race | Unknown | + + + | Ethnic Group | Unknown | + + + Author + + + | Author | [facility] | | | and Aurelianoana | + + + | Organization | [facility] | | | and [...] Team Providers + +------+ + | Care Supervisor Transferring And Boxing Name | Role | Phone | + [...] Thoracic or | [place], | [address] | | | | | lumbosacral | Randy Villar MD | [place], | | | | | neuritis or | [address] | [place] | | | | | | [place] | [address] | | | | | radiculitis, | [place], [place] | Phone: | | | | | unspecified | [address] | [phone] | | | | | | Phone: | Fax: | | | | | Trochanteric | [phone] | [phone] | | | | | bursitis of | Fax: | | | | | | right hip | [phone] | | | | | | Procedures | | | | | | | [place] | | | | | | | ARTHROCENTES | | | | | | | IS | | | | | | | ASPIR&/INJ | | | | | | | MAJOR | | | | | | | JT/BURSA W/O | | | | | | | US SD | | | | | | | INJECT | | | | | | | ANES/STEROID | | | | | | | FORAMEN | | | | | | | LUMBAR/SACRA | | | | | | | L W IMG | | | | | | | GUIDE ,1 | | | | | | | LEVEL [place] | | | | | | | [...] + + | 11/25/ | Hospital | [facility] | Hongluis ajosé antonioleightonRandy | Lumbar radiculopathy | | 2015 | Encounter | MED CTR XRAY [address] | [address] | (Primary Dx); Right | | | | [address] [place] | [place], [place] | lumbar | | | | [place] [address] | [address] | radiculopathy; | | | | [phone] | | Trochanteric | | | | | [employer] [place] | bursitis of both | | [...] + | [facility] | [address] | [place], [place] | [phone] | | [facility] | | [address] | | | - IMAGING | | [...] ST. | [address] | [place] | [phone] | | [facility] | | [address] | | | - IMAGING | | [...]
--- OUTSIDE RECORDS SUMMARY | ~2020-01-02 | XMS | Clinical Summary ---
Demographics + + + | Address | [address] | | | [place] [address] | + + + | Home Phone | | + + + | Preferred Language | Unknown | + + + | Marital Status | Single | + + + | Jew Affiliation | 1041 | + + + | Race | Unknown | + + + | Ethnic Group | Unknown | + + + Author + + + | Author | [facility] | | | and Aurelianoana | + + + | Organization | [facility] | | | and Aurelianoana [...] Team Providers + +------+ + | Care Quilt Stuffer Name | Role | Phone | + [...] +---------+--------+ | [place] | MEDICA | [id number] | 06/28/ | [phone] | | Medica | | | ID | | 2011-P | 2 | | id | | | [place] | | resent | | | | + +--------+ +--------+ +---------+--------+ | [facility] | IHS | [id number] | | | | Indemn | | [...] | Self | [birth year] | [address] | | | al/Fam | | 1950 | [phone] | [place] [address] | | | steve | | | 9 (Home) | | + +--------+ +--------+ + + Advance Directives + + + + + | Type | Date Recorded | Patient | Explanation | | | | Metal Patternmaker Apprentice | | + + + + + | Power of | | | | | Front Office Secretary | | | | + + + + + | Advance | | | | | Directive | | | | + + + + +
--- OUTSIDE RECORDS SUMMARY | ~2020-01-02 | XMS | Encounter Summary ---
Demographics + + + | Address | [address] | | | [place] [address] | + + + | Home Phone | | + + + | Preferred Language | Unknown | + + + | Marital Status | Single | + + + | Episcopalian Affiliation | 1041 | + + + | Race | Unknown | + + + | Ethnic Group | Unknown | + + + Author + + + | Author | [facility] | | | and Aurelianoana | + + + | Organization | [facility] | | | and Aurelianoana [...] Team Providers + +------+ + | Care Eligibility Analyst Name | Role | Phone | [...] | | [address] | [place] [address] | | | | | [place] | [phone] | | | | | [address] | | | | | | [phone] | | | +--------+ + + + [...]
--- OUTSIDE RECORDS SUMMARY | ~2020-01-02 | XMS | Encounter Summary ---
Demographics + + + | Address | [address] | | | [place] [address] | + + + | Home Phone | | + + + | Preferred Language | Unknown | + + + | Marital Status | Single | + + + | Evangelical Affiliation | 1041 | + + + | Race | Unknown | + + + | Ethnic Group | Unknown | + + + Author + + + | Author | [facility] | | | and Aurelianoana | + + + | Organization | [facility] | | [...] Team Providers + +------+ + | Care Cyber Security Analyst Name | Role | Phone | [...] | [address] | | | | | [address] | | | | | | [phone] | | | +--------+ + + + [...]
--- OUTSIDE RECORDS SUMMARY | ~2020-01-02 | XMS | Encounter Summary ---
Demographics + + + | Address | [address] | | | [place] [address] | + + + | Home Phone | | + + + | Preferred Language | Unknown | + + + | Marital Status | Single | + + + | Rastafarian Affiliation | 1041 | + + + | Race | Unknown | + + + | Ethnic Group | Unknown | + + + Author + + + | Author | [facility] | | | and Aurelianoana | + + + | Organization | [facility] | | | and Aurelianoana [...] Team Providers + +------+ + | Care Varitypist Name | Role | Phone | + +------+ + PCP | Unavailable | + +------+ + Encounter Details +--------+ + + + + | Date | Type | Department | Care Team | Description | +--------+ + + + + | 05/10/ | Hospital | [facility] | | | | 2001 | Encounter | MED CTR GENERIC OP | | | | | | CONV DEPT [address] | | | | | | [place], | | | | | | [place] [address] | | | | | | [phone] | | | +--------+ + + + [...]
--- OUTSIDE RECORDS SUMMARY | ~2020-01-02 | XMS | Encounter Summary ---
Demographics + + + | Address | [address] | | | [place] [address] | + + + | Home Phone | | + + + | Preferred Language | Unknown | + + + | Marital Status | Single | + + + | Latter-Day Affiliation | 1041 | + + + | Race | Unknown | + + + | Ethnic Group | Unknown | + + + Author + + + | Author | [facility] | | | and Aurelianoana | + + + | Organization | [facility] | | | and Aurelianoana [...] Team Providers + +------+ + | Care Carpenter Repair Name | Role | Phone | + [...] | | Rehabilitatio | Procedures | PA-C [address] | [address] | | | | n | | [address] | | | | | | [address] | [place] | | | | | [facility] | [place], | [address] Phone: | | | | | 10/22/14 | [place] [address] | [phone] | | | | | | Phone: | Fax: | | | | | | [phone] | [phone] | | | | | | Fax: | | | | | | | [phone] | | +--------+--------+ + + + + Encounter Details +--------+---------+ + + + | Date | Type | Department | Care Team | Description | +--------+---------+ + + + | 10/22/ | Office | [facility] [place] | Hongluis ajosé antonioRandy manzanares | Right lumbar | | 2014 | Visit | PHYSIATRY [address] | radiculopathy | | | | [address] | [address] [place] | (Primary Dx); | | | | [place] | [address] | Trochanteric | | | | [address] | | bursitis of both | | | | [phone] | | hips; DDD | | | [...] of the procedure you must provide a highway truck driver to take you home. For [...] in and out of a vehicle w [employer] traveling. The patient was seen in my [...] has no apparent deficits with short or senior care memory. She has appropriate fund of knowledge [...] | + + + + + | [facility] | [address] | [place] | [phone] | | [facility] | | [address] | | | - IMAGING | | [...] Trochanteric Bursitis ICD-9 Codes 724.4, 726.5 | [facility] | | Leyla Agosto presents to the [...] [address] | [place] | [phone] | | [facility] | | [address] | | | - IMAGING | | [...]
[~2020-01-02 01:14] MED LIST changes: +KEFLEX500 MG PO; +NORCO 5-325 TA1 EACH PO; +ULTRA-LIGHT RO1 EACH MISC
--- OUTSIDE RECORDS SUMMARY | 2020-01-02 01:16 | XMS ---
PreManage Notification: MARGARITA MILLER Security Mill Tender Warm Up Events No recent Security Events currently on file CRITERIA MET - Group Notification - [facility] - Has Care Guidelines CARE PROVIDERS RACIEL ARELLANO Physician Planning Specialist: Surgical 08/09/2018-Current PHONE: Unknown JAMESON SOLOMON [facility] 08/09/2018-Current PHONE: Unknown Name [facility] 08/06/2019-Current PHONE: [phone] Eleazar has no Care Guidelines for this patient. Care History Medical/Surgical 04/12/2019 [facility] - PATIENT RECENTLY RECEIVED MEDICATIONS DELIVERED ON 04/11/19 -OMEPRAZOLE, ZOFRAN, LISINOPRIL. PCP REFILLED ALL MEDICATIONS - PATIENT LAST PCP APT WAS ON 01/18/19. - PLEASE REFER PATIENT TO [facility] FOR NON EMERGENT MEDICAL NEEDS. 08/09/2018 [facility] \T\middot;\T\nbsp; PATIENT IS A [facility] MEMBER. \T\middot;\T\nbsp; PLEASE REFER PATIENT TO [facility] FOR NON EMERGENT MEDICAL NEEDS. \T\middot;\ T\nbsp; [facility] CAN SEE PATIENTS SAME DAY FOR APTS IF PATIENT CALLS FIRST THING IN THE MORNING. E.D. VISIT COUNT ([address] [facility] TOTAL 5 NOTE: Visits indicate total known visits. ED/UCC VISIT TRACKING (12 MO.) 01/02/2020 01:14 [facility] [place] TYPE: Emergency COMPLAINT: - N/V/D 08/05/2019 11:26 [facility] [place] TYPE: Emergency COMPLAINT: - ANKLE PAIN/ INJ DIAGNOSES: - Gastro-esophageal reflux disease without esophagitis - Alcohol abuse, uncomplicated - Nondisplaced bimalleolar fracture of right lower leg, initial - Pain in right ankle and joints of right foot - Other jail (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 - Essential (primary) hypertension - Displaced bimalleolar fracture of right lower leg, initial en - Fall on same level from slipping, tripping and stumbling with - Unspecified asthma, uncomplicated - Allergy status to narcotic agent status - Laceration without foreign body, left knee, initial encounter 04/12/2019 00:24 [facility] [place] TYPE: Emergency COMPLAINT: - CHEST PAIN, VOMITING DIAGNOSES: - Noninfective gastroenteritis and colitis, unspecified - Essential (primary) hypertension - Epigastric pain - Allergy status to narcotic agent status - Other jail (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 04/11/2019 20:58 [facility] [place] TYPE: Emergency COMPLAINT: - N/V/D DIAGNOSES: - Essential (primary) hypertension - Alcoholic gastritis without bleeding - Alcohol induced acute pancreatitis without necrosis or infect - Other buttermaker continuous churn (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 - Unspecified asthma, uncomplicated - Epigastric pain - Gastro-esophageal reflux disease without esophagitis - Allergy status to narcotic agent status 03/10/2019 18:25 [facility] [place] TYPE: Emergency COMPLAINT: - LOWER BACK PAIN DIAGNOSES: - Other buttermaker continuous churn (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 - Allergy status to narcotic agent status - Essential (primary) hypertension - Gastro-esophageal reflux disease without esophagitis - Low back pain INPATIENT VISIT TRACKING (12 MO.) No inpatient visits to display in this time frame [email or web address]
[2020-01-02] MEDS ORDERED: COMBIVENT RESPIM4 GM INH (01:26)
== END 2020-01-02 03:45 | disposition home or self-care (01) ==
LOC: ED 01:14
PROC: 0T9B70Z Drainage of Bladder with Drainage Device, Via Natural or Artificial Opening (ICD-10-PCS; principal; 2020-01-02)
DX: R11.2 Nausea with vomiting, unspecified (principal); R19.7 Diarrhea, unspecified; I10 Essential (primary) hypertension; Z87.891 Personal history of nicotine dependence; Z88.5 Allergy status to narcotic agent; Z79.899 Other long term (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
CPT/HCPCS: 51701; 80053; 81001; 83690; 85025; 99284-25; J2550; J7030

== ENCOUNTER 2020-09-07 21:43 | Emergency (ER) | payer MEDICARE, OTHER ==
[~2020-09-07] VITALS: Ht 162.6 cm; Wt 82.1 kg
[~2020-09-07 21:43] MED LIST changes: +COMBIVENT RESPIM4 GM INH
--- OUTSIDE RECORDS SUMMARY | 2020-09-07 21:46 | XMS ---
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 Care History Medical/Surgical 04/12/2019 [facility] - PATIENT RECENTLY RECEIVED MEDICATIONS DELIVERED ON 04/11/19 -OMEPRAZOLE, ZOFRAN, LISINOPRIL. PCP REFILLED ALL MEDICATIONS - PATIENT LAST PCP APT WAS ON 01/18/19. - PLEASE REFER PATIENT TO [facility] FOR NON EMERGENT MEDICAL NEEDS. 08/09/2018 [facility] \T\middot;\T\nbsp; PATIENT IS A [employer] MEMBER. \T\middot;\T\nbsp; PLEASE REFER PATIENT TO [facility] FOR NON EMERGENT MEDICAL NEEDS. \T\middot;\ T\nbsp; [facility] CAN SEE PATIENTS SAME DAY FOR APTS IF PATIENT CALLS FIRST THING IN THE MORNING. E.D. VISIT COUNT ([address] [facility]. TOTAL 2 NOTE: Visits indicate total known visits. 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
--- NOTE | 2020-09-08 13:36 | EKG ---
[facility] [address] [facility] [place], [place] [address] Signed Normal sinus rhythm Prolonged QT Abnormal ECG No previous ECGs available Confirmed by BLANCA LIZ MD ([id number]) on 09/08/2020 1:36:31 PM Electronically Signed By: BLANCA LIZ MD 09/08/20 1336 PATIENT NAME: MARGARITA MILLER REBA Electrocardiogram DATE OF : 50 PHYSICIAN: BLANCA LIZ MD REPORT #: [id number] REPORT IS CONFIDENTIAL AND NOT TO BE RELEASED WITHOUT AUTHORIZATION
== END 2020-09-07 23:26 | disposition home or self-care (01) ==
LOC: ED 21:43
DX: K29.20 Alcoholic gastritis without bleeding (principal); R07.9 Chest pain, unspecified; I10 Essential (primary) hypertension; K21.9 Gastro-esophageal reflux disease without esophagitis; J45.909 Unspecified asthma, uncomplicated; Z88.5 Allergy status to narcotic agent
CPT/HCPCS: 71045; 80053; 83690; 83735; 84484; 85025; 93005; 93010; 96374; 99285-25; J2405

== ENCOUNTER 2020-11-30 07:20 | Emergency (ER) | payer MEDICARE, OTHER ==
[~2020-11-30] VITALS: Ht 162.6 cm; Wt 90.7 kg
--- OUTSIDE RECORDS SUMMARY | 2020-11-30 07:26 | XMS ---
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 Care History Medical/Surgical 04/12/2019 [facility] - PATIENT RECENTLY RECEIVED MEDICATIONS DELIVERED ON 04/11/19 -OMEPRAZOLE, ZOFRAN, LISINOPRIL. PCP REFILLED ALL MEDICATIONS - PATIENT LAST PCP APT WAS ON 01/18/19. - PLEASE REFER PATIENT TO [facility] FOR NON EMERGENT MEDICAL NEEDS. 08/09/2018 [facility] - [facility] ELIG[facility], \T\middot;\T\nbsp; PLEASE REFER PATIENT TO [facility] FOR NON EMERGENT MEDICAL NEEDS. \T\middot;\T\nbsp; [facility] CAN SEE PATIENTS SAME DAY FOR APTS IF PATIENT CALLS FIRST THING IN THE MORNING. E.D. VISIT COUNT (12 MO.) 3 [facility]. TOTAL 3 NOTE: Visits indicate total known visits. ED/UCC VISIT TRACKING (12 MO.) 11/30/2020 07:21 [facility] [place] TYPE: Emergency COMPLAINT: - LOWER ABDOM PAIN 09/07/2020 21:[address] 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
[2020-11-30] MEDS ORDERED: LISINOPRIL10 MG PO (07:51)
[2020-11-30] MEDS ORDERED: GABAPENTIN100 MG PO (07:52)
[2020-11-30] MEDS ORDERED: DAILY VALUE1 EACH PO (07:55)
[2020-11-30] MEDS ORDERED: CLARITIN10 M2 PO (07:56)
[2020-11-30] MEDS ORDERED: PAIN RELIEVER325 MG PO (07:57)
== END 2020-11-30 08:30 | disposition home or self-care (01) ==
LOC: ED 07:20
DX: K59.00 Constipation, unspecified (principal); K21.9 Gastro-esophageal reflux disease without esophagitis; I10 Essential (primary) hypertension; J45.909 Unspecified asthma, uncomplicated; Z87.891 Personal history of nicotine dependence; Z88.8 Allergy status to other drugs, medicaments and biological substances; Z88.5 Allergy status to narcotic agent; Z88.2 Allergy status to sulfonamides; Z79.899 Other long term (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
CPT/HCPCS: 74018; 80053; 81001; 83690; 85025; 96374; 99284-25; J2405

== ENCOUNTER 2022-01-12 19:33 | Emergency (ER) | payer MEDICARE, OTHER ==
[~2022-01-12] VITALS: Ht 162.6 cm; Wt 87.0 kg
[~2022-01-12 19:33] MED LIST changes: +CLARITIN10 M2 PO; +DAILY VALUE1 EACH PO; +GABAPENTIN100 MG PO; +PAIN RELIEVER325 MG PO
--- OUTSIDE RECORDS SUMMARY | 2022-01-12 19:36 | XMS ---
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 Care History Medical/Surgical 04/12/2019 [facility] - PATIENT RECENTLY RECEIVED MEDICATIONS DELIVERED ON 04/11/19 -OMEPRAZOLE, ZOFRAN, LISINOPRIL. PCP REFILLED ALL MEDICATIONS - PATIENT LAST PCP APT WAS ON 01/18/19. - PLEASE REFER PATIENT TO [facility] FOR NON EMERGENT MEDICAL NEEDS. 08/09/2018 [facility] - PATIENT IS [facility] ELIGIBLE, \T\middot;\T\nbsp; PLEASE REFER PATIENT TO [facility] FOR NON EMERGENT MEDICAL NEEDS. \T\middot;\T\nbsp; [facility] CAN SEE PATIENTS SAME DAY FOR APTS IF PATIENT CALLS FIRST THING IN THE MORNING. E.D. VISIT COUNT (12 MO.) 1 [facility]. TOTAL 1 NOTE: Visits indicate total known visits. ED/UCC VISIT TRACKING (12 MO.) 01/12/2022 19:34 [facility] [place] TYPE: Emergency COMPLAINT: - ABDOMINAL PAIN INPATIENT VISIT TRACKING (12 MO.) No inpatient visits to display in this time frame [id number]
== END 2022-01-13 00:48 | disposition home or self-care (01) ==
LOC: ED 19:33
DX: R10.30 Lower abdominal pain, unspecified (principal); R19.7 Diarrhea, unspecified; I10 Essential (primary) hypertension; J45.909 Unspecified asthma, uncomplicated; Z87.891 Personal history of nicotine dependence; Z88.2 Allergy status to sulfonamides; Z88.5 Allergy status to narcotic agent; Z88.8 Allergy status to other drugs, medicaments and biological substances; Z79.899 Other long term (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
CPT/HCPCS: 36415; 74177; 80053; 81001; 83690; 85025; 99284-25; J2405; Q9967